=== PATIENT | female | born 1985 | race Caucasian/White ===

== ENCOUNTER 2016-10-20 20:27 | Inpatient (IN) ==
[2016-10-20] MEDS ORDERED: HYDROmorphone 2 MG/1 ML VIAL IV STA (21:53)
[2016-10-20] MEDS ORDERED: CLINDAMYCIN INJ 600 MG in PREMIX 1 EACH IV STA (21:53)
[2016-10-20] MEDS ORDERED: ONDANSETRON 4 MG/2 ML VIAL IV STA (21:53)
--- NOTE | 2016-10-20 21:53 | Emergency Department Note ---
IDom Sierra, am scribing for, and in the presence of, Jose Laboy MD 21:47. Narda Stoner Charles R, MD, personally performed the services described in this documentation, ascribed by Alexandrea Fernandes in my presence, and it is both accurate and complete . Arrival - Arrival Chief Complaint: Abscess Stated Complaint: Hematomaor abcess on buttocks, fever ED Nursing Triage Note: C/O Knot to buttock around anus- noticed today. Pt reports that she has also had fever of 100.9 at home. Pt reports pain with palpation. Denies drainage from area. Mode of Arrival: Ambulatory Limitations: No Limitations Source: Patient Time Seen by Provider: 10/20/16 21:29 - History of Present Illness HPI Narrative: Pt is a 30 y/o female that came to the ED with c/o knot to the left buttock around anus that she noticed today. Pt has associated sxs of fever but denies rectal pain. Pt states the only thing she could think of is a fall 3 months ago. Pt denies a Hx of hemorrhoids or medical problems. Pt denies possibility of due to being on control. No other complaints/pain in ED. Onset (ago): hour(s) Consistency: constant Severity: mild Severity scale (1-10): 2 Quality: other Date of Last Menstrual Period: 2 weeks ago Allergies/Adverse Reactions: Allergies Allergy/AdvReac Type Severity Reaction Status Date / Time Cefaclor [From Ceclor] Allergy Intermediate HIVES Verified 05/21/15 05:58 cefixime [From Suprax] Allergy Intermediate HIVES Verified 05/21/15 05:58 Cefprozil [From Cefzil] Allergy Intermediate HIVES Verified 05/21/15 05:58 Telithromycin [From Ketek] AdvReac Intermediate Blurry Verified 05/21/15 05:46 Vision Home Medications: Home Medications Medication Instructions Recorded Confirmed Type Montelukast Tab [Singulair Tab] 1 tablet PO DAILY 05/21/15 10/20/16 History Phentermine HCl [Adipex-P] 37.5 mg PO DAILY 10/20/16 10/20/16 History Review of System - Review of System 12 point system: reviewed and no additional remarkable complaints except as stated - Review of System Constitutional: Present: fever Cardiovascular: Absent: chest pain Gastrointestinal: Absent: abdominal pain Musculoskeletal: Absent: arm pain, back pain, leg pain, neck pain Skin: Present: other (knot on the left buttock near the anus) Neurological: Absent: headache Psychiatric: Absent: anxiety Medical,Surgical,& Family Hx - Medical History Cardio: No history of: Aneurysm, Cardiac Dysrhythmia, Cerebrovascular Disease, Congenital Heart Disease, CHF, CAD, Hypertension, [place], Pacemaker, PVD, Valvular Heart Disease, Cardiovascular Problems Psychological: No history of: Anxiety Disorders, ADHD, Behavior Problems, Bipolar Disorder, Depression, Previous Suicide Attempt, Psychiatric/Substance Abuse Tx, Schizophrenia, Violent Behavior, Psychiatric Problems Neurology: No history of: Brain Aneurysm, Cerebral Hemorrhage, Cerebrovascular Accident , Cerebral Palsy, Dementia, Migraine, Multiple Sclerosis, Parkinson's Disease, Peripheral Neuropathy, Seizures, TIA, Vertigo, Neurologocal Cancer HEENT: No history of: HEENT Problems Endocrine: No history of: Dyslipidemia, Endocrine Problems Respiratory: No history of: Respiratory Problems Musculoskeletal: No history of: Amputation, Musculoskeletal Problems Hematology: History of: Blood Disorders (Thalasemia minor) No history of: Anemia, Blood Transfusion Reaction, Bleeding Problems, Clotting Problems, Sickle Cell Disease, Hematologic Cancer Reproductive: History of: Complication (miscarriage 10) No history of: Ectopic Other: No history of: Anesthesia Reactions (Mother had reaction in surgery elevated temp), Cancer - Surgical History Cardiac Surgeries: Patient Denies: Femoral-Popliteal Bypass Graft, Cardiac Catheterization, Cardiac Surgery, Carotid Endarterectomy, Internal Defibrillator, Vascular Access Devices Thoracic Surgeries: Patient denies;: Organ Transplant, Lobectomy Neurologic Surgeries: Patient denies: Brain Aneurysm, Cerebral Hemorrhage, Neurologic Surgery HEENT Surgeries: Surgical HX of: Tonsilectomy & Adenoidectomy Patient denies: Carotid Endarterectomy, Eye Surgery, Thyroid Surgery Abdominal Surgeries: Patient denies: Abdominal Surgery, Appendectomy, Cholecystectomy, Colonoscopy , Gastric Bypass Surgery, EGD, Hernia Repair, Splenectomy Reproductive Surgeries: Surgical HX of;: Breast Surgery (Augment 2004), Dilation and Curettage (2013) Patient denies;: Section, Genitourinary Surgery, Gynecologic Surgery , Hysterectomy, Tubal Ligation - Family History Family History: Reports;: Family Anesthesia Reaction (mother), Family Cancer ( PGM and PGF), Family Diabetes (mother), Family Heart Disease (LA PGM), Family Hypertension (PGM and mother), Family Stroke Denies;: Family Psychiatric Problems - Social History Smoking Status: Never smoker Frequency of Alcohol Use: None Type of Drug Use: None Exam Vital Signs: Vital Signs Temperature 99 F 10/20/16 21:13 Pulse Rate 104 H 10/20/16 21:13 Respiratory Rate 18 10/20/16 21:13 Blood Pressure 155/83 10/20/16 21:13 O2 Sat by Pulse Oximetry 98 10/20/16 20:54 - General General appearance: alert, in no apparent distress - Head Head exam: Present: atraumatic, normocephalic - Eye Eye exam: Present: PERRL, EOMI - ENT ENT exam: Present: mucous membranes moist. Absent: mucous membranes dry - Neck Neck exam: Present: full ROM. Absent: tenderness - Chest Chest inspection: Present: symmetric chest wall rise. Absent: tenderness - Respiratory Respiratory exam: Present: normal lung sounds bilaterally. Absent: respiratory distress - Cardiovascular Cardiovascular exam: Present: normal rhythm, tachycardia, normal heart sounds - Abdominal Exam Abdominal exam: Present: soft. Absent: tenderness - Rectal Exam Rectal exam: Present: other (left perirectal abscess about 2 cm that is tender and deep but no area of redness or drainage) - Extremities Exam Extremities exam: Present: full ROM. Absent: tenderness - Back Exam Back exam: Present: full ROM. Absent: tenderness - Neurological Exam Neurological exam: Present: alert, oriented X3, CN II-XII intact. Absent: motor sensory deficit - Psychiatric Psychiatric exam: Present: normal affect, normal mood - Skin Skin exam: Present: warm, dry Course - Consultations Consultation #1: Dr. Patten will admit patient Time: 23:13 Results - Labs CBC & BMP: 10/20/16 22:11 10/20/16 22:11 Lab Results: I have reviewed the patients labs Labs: Laboratory Tests 10/20/16 22:11 WBC 13.5 H RBC 6.70 H MCV 60.7 L MCH 19 L MCHC 30.7 L RDW 17.7 H Lymph % (Auto) 20.8 L Neut # (Auto) 9.9 H Laboratory Tests 10/20/16 10/20/16 22:11 22:11 WBC 13.5 H RBC 6.70 H MCV 60.7 L MCH 19 L MCHC 30.7 L RDW 17.7 H Lymph % (Auto) 20.8 L Neut # (Auto) 9.9 H Urine Color Yellow Urine Appearance Clear Urine pH 8.0 Ur Specific Allen 1.010 Urine Protein Negative Urine Glucose (UA) Negative Urine Ketones Negative Urine Blood Negative Urine Nitrate Negative Urine Bilirubin Negative Urine Urobilinogen < 2.0 H Urine Leukocytes Negative Urine WBC 1 Ur Squamous Epith Cells Occasional Urine Bacteria Occasional Disposition Clinical Impression: Abscess of skin or subcutaneous tissue, Perirectal abscess Case discussed with: patient, patient's family Disposition: Still a Patient Condition: Stable Time of Disposition: 23:14
[2016-10-20] MEDS ORDERED: CLINDAMYCIN INJ 50 ML IV ONE (22:20)
[2016-10-20] MEDS ORDERED: ONDANSETRON 4 MG/2 ML VIAL ONE (22:20)
[2016-10-20] MEDS ORDERED: HYDROmorphone 2 MG/1 ML VIAL ONE (22:20)
[2016-10-20 22:24] LABS: Basophils # 0.1 10*3/uL (0.0-0.2); Basophils % 0.4 % (0.0-0.8); Eosinophils % 0.3 % (0.00-10.9); Hematocrit 40.7 VOL% (35.7-47.0); Hemoglobin 12.5 GM/DL (12.0-16.0); Immature Granulocytes % 0.3 %; Immature Granulocytes Absolute 0.04 #; Lymphocytes # 2.8 10*3/uL (1.4-4.0); Lymphocytes % 20.8 % (21.3-54.2); Mean Corpuscular HGB Conc 30.7 GM/DL (32-36); Mean Corpuscular Hemoglobin 19 PG (27-34); Mean Corpuscular Volume 60.7 FL (87-102); Mean Platelet Volume 10.5 FL (9.6-12.0); Monocytes # 0.6 10*3/uL (0.11-0.8); Monocytes % 4.6 % (1.7-12.7); Neutrophils # 9.9 10*3/uL (1.4-7.4); Neutrophils % 73.6 % (38.7-73.9); Platelet Count 331 T/CUMM (130-400); Red Cell Distribution Width 17.7 % (9.3-17.3); White Blood Count 13.5 T/CUMM (4-12)
[2016-10-20 22:54] LABS: Apearance,Urine CLEAR (Clear); Bacteria,Urine Occasional /HPF (Few); Bilirubin,Urine Negative (Negative); Blood, Urine Negative (Negative); Glucose,Urine (UA) Negative (Negative); Ketones,Urine Negative (Negative); Nitrite,Urine Negative (Negative); Protein,Urine Negative; Squamous Epithelial Cell,Urine Occasional /HPF (0-10); Urine Color Yellow (Yellow); Urine Urobilinogen < 2.0 EU/DL (0.2-1.0); WBC,Urine 1 /HPF (0-6)
[2016-10-20 23:05] LABS: Albumin 3.5 G/DL (3.4-5.0); Calcium 8.3 MG/DL (8.5-10.1); Osmolality,Calculated 275.5 MOS/KG (273-304); Potassium 4.1 MMOL/L (3.5-5.1); Total Protein 6.7 G/DL (6.4-8.3)
[2016-10-20] MEDS ORDERED: ACETAMINOPHEN 325 MG TABLET PO PRN (23:52)
[2016-10-20] MEDS ORDERED: HYDROmorphone 2 MG/1 ML VIAL IV PRN (23:52)
[2016-10-20] MEDS ORDERED: ONDANSETRON 4 MG/2 ML VIAL IV PRN (23:52)
[2016-10-21] MEDS: SODIUM CHLORIDE 0.9% 1,000 ML IV SCH ×2 (00:15→23:04)
[2016-10-21] MEDS: CLINDAMYCIN INJ 600 MG in PREMIX 1 EACH IV SCH ×4 (04:40→23:04)
[2016-10-21 08:49] LABS: Basophils % 0.4 % (0.0-0.8); Eosinophils % 0.5 % (0.00-10.9); Hematocrit 36.6 VOL% (35.7-47.0); Hemoglobin 11.1 GM/DL (12.0-16.0); Immature Granulocytes % 0.4 %; Immature Granulocytes Absolute 0.03 #; Lymphocytes % 25.4 % (21.3-54.2); Mean Corpuscular HGB Conc 30.3 GM/DL (32-36); Mean Corpuscular Hemoglobin 19 PG (27-34); Mean Corpuscular Volume 62.1 FL (87-102); Mean Platelet Volume 10.8 FL (9.6-12.0); Monocytes # 0.5 10*3/uL (0.11-0.8); Monocytes % 6.2 % (1.7-12.7); Neutrophils # 5.4 10*3/uL (1.4-7.4); Neutrophils % 67.1 % (38.7-73.9); Platelet Count 235 T/CUMM (130-400); Red Blood Count 5.89 MC/CUMM (3.8-5.5); Red Cell Distribution Width 16.1 % (9.3-17.3)
[2016-10-21 09:03] LABS: Calcium 8.1 MG/DL (8.5-10.1); Magnesium 2.2 MG/DL (1.8-2.4); Osmolality,Calculated 280.1 MOS/KG (273-304); Potassium 4.2 MMOL/L (3.5-5.1); Total Protein 5.8 G/DL (6.4-8.3)
[2016-10-21 09:25] LABS: Lymphocytes 26 % (20-55); Segmented Neutrophils 69 % (50-85); Total Cells Counted 100
[2016-10-21 09:26] LABS: Hypochromasia 1+; Ovalocytes Slight
[2016-10-21 09:27] LABS: Microcytosis 2+; Platelet Estimate Adequate
[2016-10-21] MEDS: MONTELUKAST 10 MG TABLET PO SCH (10:03)
[2016-10-21] MEDS: ENOXAPARIN 40 MG/0.4 ML SYRINGE SUBCUT SCH (10:05)
--- NOTE | 2016-10-21 10:41 | General Surg History&Physical ---
Assessment and Plan (1) Perirectal abscess Status: Acute Assessment and plan: This patient has a very tender lesion on her medial buttock and perirectal area. This is concerning for perirectal abscess. In order to minimize discomfort, we will go ahead with an exam in the operating room and drain the abscess if that is what we find. This was discussed with the patient in detail. I have discussed the risks, benefits, and alternatives of the operation with the patient, and the expected outcomes have been reviewed. We will proceed with the procedure. Current Visit: Yes History of Present Illness Chief complaint: Anal pain History of present illness: Ms. Phan is a 31 year old female with no significant past medical or surgical history who presents to the hospital with a 2 day history of worsening pain in the inner buttock on the right side. She was evaluated in the ER and thought to have a perirectal abscess and admitted to the hospital. She has had fevers as well. Home Medications Medication Instructions Recorded Confirmed Type Montelukast Tab [Singulair Tab] 1 tablet PO DAILY 05/21/15 10/20/16 History Phentermine HCl [Adipex-P] 37.5 mg PO DAILY 10/20/16 10/20/16 History Allergies Allergy/AdvReac Type Severity Reaction Status Date / Time Cefaclor [From Ceclor] Allergy Intermediate HIVES Verified 05/21/15 05:58 cefixime [From Suprax] Allergy Intermediate HIVES Verified 05/21/15 05:58 Cefprozil [From Cefzil] Allergy Intermediate HIVES Verified 05/21/15 05:58 Telithromycin [From Ketek] AdvReac Intermediate Blurry Verified 05/21/15 05:46 Vision Medical,Surgical,& Family Hx - Medical History Cardio: No history of: Aneurysm, Cardiac Dysrhythmia, Cerebrovascular Disease, Congenital Heart Disease, CHF, CAD, Hypertension, [place], Pacemaker, PVD, Valvular Heart Disease, Cardiovascular Problems Psychological: No history of: Anxiety Disorders, ADHD, Behavior Problems, Bipolar Disorder, Depression, Previous Suicide Attempt, Psychiatric/Substance Abuse Tx, Schizophrenia, Violent Behavior, Psychiatric Problems Neurology: No history of: Brain Aneurysm, Cerebral Hemorrhage, Cerebrovascular Accident , Cerebral Palsy, Dementia, Migraine, Multiple Sclerosis, Parkinson's Disease, Peripheral Neuropathy, Seizures, TIA, Vertigo, Neurologocal Cancer HEENT: No history of: HEENT Problems Endocrine: No history of: Dyslipidemia, Endocrine Problems Respiratory: No history of: Respiratory Problems Musculoskeletal: No history of: Amputation, Musculoskeletal Problems Hematology: History of: Blood Disorders (Thalasemia minor) No history of: Anemia, Blood Transfusion Reaction, Bleeding Problems, Clotting Problems, Sickle Cell Disease, Hematologic Cancer Reproductive: History of: Complication (miscarriage 10) No history of: Ectopic Other: No history of: Anesthesia Reactions (Mother had reaction in surgery elevated temp), Cancer - Surgical History Cardiac Surgeries: Patient Denies: Femoral-Popliteal Bypass Graft, Cardiac Catheterization, Cardiac Surgery, Carotid Endarterectomy, Internal Defibrillator, Vascular Access Devices Thoracic Surgeries: Patient denies;: Organ Transplant, Lobectomy Neurologic Surgeries: Patient denies: Brain Aneurysm, Cerebral Hemorrhage, Neurologic Surgery HEENT Surgeries: Surgical HX of: Tonsilectomy & Adenoidectomy Patient denies: Carotid Endarterectomy, Eye Surgery, Thyroid Surgery Abdominal Surgeries: Patient denies: Abdominal Surgery, Appendectomy, Cholecystectomy, Colonoscopy , Gastric Bypass Surgery, EGD, Hernia Repair, Splenectomy Reproductive Surgeries: Surgical HX of;: Breast Surgery (Augment 2004), Dilation and Curettage (2013) Patient denies;: Section, Genitourinary Surgery, Gynecologic Surgery , Hysterectomy, Tubal Ligation - Family History Family History: Reports;: Family Anesthesia Reaction (mother), Family Cancer ( PGM and PGF), Family Diabetes (mother), Family Heart Disease ([place] PGM), Family Hypertension (PGM and mother), Family Stroke Denies;: Family Psychiatric Problems - Social History Smoking Status: Never smoker Frequency of Alcohol Use: None Type of Drug Use: None Exam - Constitutional Vitals: Period Temp Pulse Resp BP Sys/Miramontes Pulse Ox Last 24 Hr 97.8 F-98.6 F 84-104 16-18 105-116/57-71 97-100 General appearance: no acute distress, morbidly obese - Head Head exam: Present: normal inspection, normocephalic - Eye Eye exam: Present: EOMI Pupils: Present: MCKENNA - ENT ENT exam: Present: normal exam Mouth exam: Present: normal external inspection, normal voice - Neck Neck exam: Present: normal inspection, trachea midline - Respiratory Respiratory exam: Present: clear to auscultation bilaterally. Absent: accessory muscle use, chest wall tenderness - Cardiovascular Cardiovascular exam: Present: RRR. Absent: systolic murmur, tachycardia - GI/Abdominal GI/Abdominal exam: Present: soft. Absent: tenderness, rebound - Anus/Rectum Anus/Rectum: other (There is a firm area to the right of the anus consistent with possible perirectal abscess. This is very tender. There is no appreciable erythema.) - Extremities Exam Extremities exam: Present: normal inspection, normal capillary refill - Back Exam Back exam: Present: normal inspection - Neurological Exam Neurological exam: Present: alert, oriented X3 Speech: Present: normal - Skin Skin exam: Present: normal color, warm - Constitutional Constitutional: Present: as per HPI - EENT Nose, mouth and throat: Present: as per HPI - Cardiovascular Cardiovascular: Present: as per HPI - Respiratory Respiratory: Present: as per HPI - Gastrointestinal Gastrointestinal: Present: as per HPI - Genitourinary Genitourinary: Present: as per HPI - Musculoskeletal Musculoskeletal: Present: as per HPI - Neurological Neurological: Present: as per HPI - Endocrine Endocrine: Present: as per HPI Hematologic/Lymphatic: Present: as per HPI Results - Labs CBC & BMP: 10/21/16 08:22 10/21/16 08:22
[2016-10-21] MEDS: PANTOPRAZOLE 40 MG VIAL IV SCH (11:10)
[2016-10-21] MEDS ORDERED: BUPIVACAINE MPF 0.25% /EPI 30 ML VIAL ONE (11:37)
[2016-10-21] MEDS ORDERED: PROPOFOL 200 MG/20 ML VIAL IV ONE (13:00)
[2016-10-21] MEDS ORDERED: LIDOCAINE 1% 5 ML VIAL ONE (13:00)
[2016-10-21] MEDS ORDERED: ONDANSETRON 4 MG/2 ML VIAL ONE ×2 (13:00→13:50)
--- NOTE | 2016-10-21 13:36 | Operative Note ---
Date of procedure: 10/21/16 Pre-op diagnosis: Perirectal abscess Post-op diagnosis: same Procedure: Preoperative diagnosis Perirectal abscess Postoperative diagnosis Ischio rectal perirectal abscess Procedures performed Rectal exam per anesthesia Incision and drainage of ischiorectal perirectal abscess externally Complications None apparent Findings A left-sided ischiorectal perirectal abscess was found on rectal exam was drained externally. Large amount of pus was drained and cultures were sent. The wound was irrigated and packed with iodoform packing gauze Anesthesia General LMA Blood loss None Indications Perirectal abscess Description of procedure The patient was taken to the operating room and transferred to the operating table in supine position. Pressure points were padded and SCDs placed to lower extremities. The patient was placed in lithotomy position after anesthesia was administered with general LMA anesthesia. The perineum was prepped with Betadine and draped sterilely. The patient was already receiving therapeutic antibiotics. Timeout was performed. Rectal exam under anesthesia revealed a moderate-sized issue rectal abscess in the perirectal space. This was drained externally because of the not close to the rectum and it was not fixed to the rectum. Incision was made over the skin and a cryo was used to enter the abscess cavity with a large amount of pus returned and cultures were sent. Loculations are broken up with digital manipulation of the wound was irrigated and packed with half-inch iodoform packing gauze and dressed with a sterile dressing. The patient was awakened from anesthesia and transferred to recovery. Postoperative plan Follow-up cultures Discharge planning Implants: iodoform packing gauze Anesthesia: GETA Surgeon / Physician: Chris Patten Estimated blood loss: minimal Specimens: other (cultures) Condition: stable Disposition: PACU Results - Labs CBC & BMP: 10/21/16 08:22 10/21/16 08:22 Discharge Plan - Discharge Medications No Action Montelukast Tab [Singulair Tab] 1 tablet PO DAILY Phentermine HCl [Adipex-P] 37.5 mg PO DAILY - Follow Up or Referral - Forms/Instructions
[2016-10-21] MEDS ORDERED: HYDROmorphone 2 MG/1 ML VIAL ONE (13:50)
[2016-10-21] MEDS ORDERED: ONDANSETRON 4 MG/2 ML VIAL IV PRN (13:50)
--- NOTE | 2016-10-21 13:54 | Anesthesia ---
Anesthesia Post OP - Post Ansesthetic Evaluation Patient seen in post op: Yes Resp: within normal limits CV: within normal limits Mental: within normal limits Temp: within normal limits [id number]: within normal limits Nausea and Vomiting: within normal limits Pain: within normal limits
[2016-10-21] MEDS: HYDROmorphone 2 MG/1 ML VIAL IV PRN ×4 (13:55→14:10)
[2016-10-21] MEDS ORDERED: fentaNYL 100 MCG/2 ML VIAL ONE (13:58)
[2016-10-21] MEDS ORDERED: MIDAZOLAM 2 MG/2 ML VIAL ONE (13:58)
[2016-10-21] MEDS ORDERED: SEVOFLURANE 1 UNIT/15 MINUTE INH ONE (13:58)
[2016-10-21] MEDS ORDERED: LACTATED RINGERS 1,000 ML IV SCH (14:00)
--- NOTE | 2016-10-21 16:42 | Event Note ---
General Surgery Progress Note Chief complaint This patient is a 31-year-old woman with a perirectal abscess treated with incision and drainage of ischiorectal perirectal abscess on 10/21/2016 Interval history No events since OR. The patient is resting comfortably and actually feels better since the procedure. Physical exam Afebrile, normal vital signs Resting comfortably Labs None new Imaging None Assessment and plan Continue antibiotics and follow-up cultures We will take the packing out tomorrow and teach the family how to do wound care and possible discharge home tomorrow
[2016-10-22] MEDS: CLINDAMYCIN INJ 600 MG in PREMIX 1 EACH IV SCH ×2 (04:17→11:44)
[2016-10-22] MEDS: ENOXAPARIN 40 MG/0.4 ML SYRINGE SUBCUT SCH (07:23)
[2016-10-22] MEDS: MONTELUKAST 10 MG TABLET PO SCH (09:21)
[2016-10-22] MEDS: PANTOPRAZOLE 40 MG VIAL IV SCH (09:22)
--- NOTE | 2016-10-22 10:54 | Event Note ---
General Surgery Progress Note Chief complaint This patient is a 31-year-old woman with a perirectal abscess treated with incision and drainage of ischiorectal perirectal abscess on 10/21/2016 Interval history No events overnight. The patient's packing was removed today and she was left to do a sitz bath with plans for repacking after her mother is available to be taught how to do wound care by the nurses. Physical exam Afebrile, normal vital signs The wound was unpacked and is clean with no further purulent drainage and no bleeding Labs Cultures are pending Imaging None Assessment and plan We will teach the patient's family how to pack this wound and she will be discharged home today with wound care instructions to clean her wound once daily in the shower after taking out the packing and have a family member replace the packing with half-inch iodoform gauze and cover with gauze and mesh underwear. She will go home with a prescription for Bactrim double strength twice daily and I will see her back in clinic in 1 week.
--- NOTE | 2016-10-22 11:50 | Discharge Summary ---
Hospital Course - Hospital Course Hospital Course: The patient is a 31-year-old female who presented to the emergency department with a ischiorectal perirectal abscess which required incision and drainage in the operating room. Postoperatively, her pain was controlled and she tolerated dressing change with oral pain medicines. Leukocytosis resolved. Vital signs remained stable. She tolerated oral intake without difficulty. She was discharged on oral antibiotics. We will follow-up on the cultures. She will follow-up in the clinic in 1 week. - Time spent with patient Time with patient DS: Less than 30 minutes Diagnosis - Discharge Diagnosis (1) Perirectal abscess Status: Acute (2) Ischiorectal abscess Status: Acute Specialty Discharge - Follow Up or Referrals Follow up with: Chris Patten MD [Physician] - 10/29/16 2:00 pm (please bring your medicines, insurance cards and photo id to your appointment. thank you.) Discharge Plan - Discharge Data Condition at Discharge: Stable Discharge Diet: advance to your usual diet, high fiber diet Activity: resume usual activities as tolerated, other (Avoid perspiration. ) Hygiene: may shower, keep area(s) dry Driving: other (No driving while taking narcotics) Contact your physician if you experience:: fever over 101, Difficulty voiding, Redness or swelling, Nausea/Vomiting, Shortness of breath, Bleeding, pain uncontrolled by pain medications (increased drainage or erythema about wound) Wound / Dressing Care Instructions: Daily: remove packing and shower, cleansing perirectal area. Insert 1/2 iodoform packing gauze, cover with gauze and cotton undergarment - Discharge Medications New Docusate Sodium [Colace] 100 mg PO DAILY #14 capsule HYDROcodone/ACETAMIN 7.5-325 [[place] 7.5-325] 1 tablet PO Q4H PRN #30 tablet PRN Reason: Pain Moderate To Severe (4-10) Continue Montelukast Tab [Singulair Tab] 1 tablet PO DAILY Phentermine HCl [Adipex-P] 37.5 mg PO DAILY - Follow Up or Referral Follow Up: Chris Patten MD [Physician] - 10/29/16 2:00 pm (please bring your medicines, insurance cards and photo id to your appointment. thank you.) - Forms/Instructions Instructions: Abscess (GEN), Incision and Drainage (DC) Additional Discharge Instructions: Bactrim DS take 1 tab BID x 7 days. Exam - Constitutional Vitals: Period Temp Pulse Resp BP Sys/Miramontes Pulse Ox Last 24 Hr 97.7 F-99.9 F 57-88 16-20 95-131/48-65 96-100 General appearance: no acute distress, morbidly obese - Respiratory Respiratory exam: Present: clear to auscultation bilaterally - Cardiovascular Cardiovascular exam: Present: regular rate and rhythm - GI/Abdominal GI/Abdominal exam: Present: normal bowel sounds, soft. Absent: distended, tenderness - Extremities Exam Extremities exam: Absent: calf tenderness (See Dr. Patten note day of discharge) , edema - Neurological Exam Neurological exam: Present: alert, oriented X3 - Psychiatric Psychiatric exam: Present: normal affect, normal mood Discharge Results Procedures and tests throughout hospitalization: Pending Orders 10/21/16 Abscess Culture Routine Anaerobic Culture Routine Above cultures pending Procedure: I&D ischiorectal perirectal abscess Labs on day of discharge: Preliminary micro results at discharge 10/21/16 Unknown Abscess Culture - Preliminary Anus Gram Negative Rods DS: Provider Date of admission: 10/20/16 23:14 Primary care physician: . No PCP Attending physician on admission: Chris Patten MD Discharging clinician: Jagruti Farley PA-C
[2016-10-22 20:24] VITALS: BP 129/63
== END 2016-10-22 13:47 | disposition home or self-care (01) | DRG 348 ==
LOC: N.ED 20:27 → N.EDINP 23:14 → N.3E 23:49
PROVIDERS: ADMIT Surgery; ATTEND Surgery

== ENCOUNTER 2016-12-17 18:51 | Inpatient (IN) ==
--- NOTE | 2016-12-17 20:22 | Emergency Department Note ---
IGabriela Brittany, am scribing for, and in the presence of, Arpit Zhang MD 19: 35. Leatha Stoner Robert, MD, personally performed the services described in this documentation, ascribed by Mylene Ochoa in my presence, and it is both accurate and complete . Arrival - Arrival Chief Complaint: Abscess Stated Complaint: told to come to Er by Dr. Keith who was ruby on rails engineer ED Nursing Triage Note: Patient to triage complaining of tenderness around surgical area with green drainage. Patient state she has also been running a low grade fever it. Patient had surgery on October 21 and . Mode of Arrival: Ambulatory Limitations: No Limitations Source: Patient Time Seen by Provider: 12/17/16 19:17 - History of Present Illness HPI Narrative: This is a 31 y/o white female,who presents to the ED with c/o perirectaltenderness which started earlier today. She states she has had surgery for a perirectal abscess on October [address] Patten. She states the site was then packed but she later developed Staph infection. She then had surgery to the same area on the 30 of October. She reports at this time a drainage tube was placed. She reports a low grade fever, but denies any vomiting, nausea, abdomen pain, diarrhea, vision changes, or dysuria. She notes a greenish discharge from the site. She states she called Dr. Patten's office and spoke with Dr. Keith, whom was ruby on rails engineer. She states she was told to come in to the ER. Pt has no other complaints/pain in the ED at this time. Pt has a PMHx of seizures, blood disorders and complications. Pt has had a breast surgery, D&C, tonsilectomy. Pt has a family medical Hx of stroke, HTN, heart disease, diabetes, cancer, and anesthesia reactions. Pt denies the use of tobacco products and street drugs, but notes rarely using alcohol. Onset (ago): hour(s) (Noticed today) Consistency: constant Severity: moderate Quality: sharp Allergies/Adverse Reactions: Allergies Allergy/AdvReac Type Severity Reaction Status Date / Time Cefaclor [From Ceclor] Allergy Intermediate HIVES Verified 12/17/16 19:03 cefixime [From Suprax] Allergy Intermediate HIVES Verified 12/17/16 19:03 Cefprozil [From Cefzil] Allergy Intermediate HIVES Verified 12/17/16 19:03 Telithromycin [From Ketek] AdvReac Intermediate Blurry Verified 12/17/16 19:03 Vision Home Medications: Home Medications Medication Instructions Recorded Confirmed Type Montelukast Tab [Singulair Tab] 1 tablet PO QPM 05/21/15 12/17/16 History Norethindrone [Norethindrone] 0.35 mg PO QPM 12/17/16 12/17/16 History Review of System - Review of System 12 point system: reviewed and no additional remarkable complaints except as stated - Review of System Constitutional: Present: fever (Low grade fever) Eyes: Absent: vision change Gastrointestinal: Absent: abdominal pain, nausea, vomiting, diarrhea Genitourinary female: Absent: dysuria Additional ROS comments: Surgical Site tender with a greenish drainage noted Medical,Surgical,& Family Hx - Medical History Cardio: No history of: Aneurysm, Cardiac Dysrhythmia, Cerebrovascular Disease, Congenital Heart Disease, CHF, CAD, Hypertension, [place], Pacemaker, PVD, Valvular Heart Disease, Cardiovascular Problems Psychological: No history of: Anxiety Disorders, ADHD, Behavior Problems, Bipolar Disorder, Depression, Previous Suicide Attempt, Psychiatric/Substance Abuse Tx, Schizophrenia, Violent Behavior, Psychiatric Problems Neurology: History of: Seizures No history of: Brain Aneurysm, Cerebral Hemorrhage, Cerebrovascular Accident , Cerebral Palsy, Dementia, Migraine, Multiple Sclerosis, Parkinson's Disease, Peripheral Neuropathy, TIA, Vertigo, Neurologocal Cancer HEENT: No history of: HEENT Problems Endocrine: No history of: Dyslipidemia, Endocrine Problems Respiratory: No history of: Respiratory Problems Musculoskeletal: No history of: Amputation, Musculoskeletal Problems Hematology: History of: Blood Disorders (Thalasemia minor) No history of: Anemia, Blood Transfusion Reaction, Bleeding Problems, Clotting Problems, Sickle Cell Disease, Hematologic Cancer Reproductive: History of: Complication (miscarriage 10) No history of: Ectopic Other: No history of: Cancer Comment Only: Anesthesia Reactions (Mother had reaction in surgery elevated temp) - Surgical History Cardiac Surgeries: Patient Denies: Femoral-Popliteal Bypass Graft, Cardiac Catheterization, Cardiac Surgery, Carotid Endarterectomy, Internal Defibrillator, Vascular Access Devices Thoracic Surgeries: Patient denies;: Organ Transplant, Lobectomy Neurologic Surgeries: Patient denies: Brain Aneurysm, Cerebral Hemorrhage, Neurologic Surgery HEENT Surgeries: Surgical HX of: Tonsilectomy & Adenoidectomy Patient denies: Carotid Endarterectomy, Eye Surgery, Thyroid Surgery Abdominal Surgeries: Patient denies: Abdominal Surgery, Appendectomy, Cholecystectomy, Colonoscopy , Gastric Bypass Surgery, EGD, Hernia Repair, Splenectomy Reproductive Surgeries: Surgical HX of;: Breast Surgery (Augment 2004), Dilation and Curettage (2013) Patient denies;: Section, Genitourinary Surgery, Gynecologic Surgery , Hysterectomy, Tubal Ligation - Family History Family History: Reports;: Family Anesthesia Reaction (mother), Family Cancer ( PGM and PGF), Family Diabetes (mother), Family Heart Disease ([place] PGM), Family Hypertension (PGM and mother), Family Stroke Denies;: Family Psychiatric Problems - Social History Smoking Status: Never smoker Frequency of Alcohol Use: Rarely Type of Drug Use: None Marital Status: Lives With:: Children Functional capacity: independent ambulation Exam Physical Examination: GENERAL: Well developed, well nourished. No acute distress. HEENT: PERRL, EOMI. No scleral icterus or conjunctival injection. Pharynx showed no erythema or exudate. mucous membranes moist. NECK: Supple. No lymph adenopathy. full ROM HEART: Regular rate and rhythm without murmurs, Rubs, or gallops. CHEST: No tenderness. LUNGS: clear to auscultation. No rales, rhonchi, wheezes ABDOMEN: Soft. Nontender. Bowel sounds normoactive. There were no masses or organomegaly. SKIN: Healed surgical scar over left perirectal region small punctum. Able to express pus. Mildly tender. NEURO: Alert. Motor exam showed no weakness. Sensory exam was intact to fine touch EXT: No edema noted. Full range of motion. normal capillary refill Vital Signs: Vital Signs Temperature 98.6 F 12/17/16 19:14 Pulse Rate 84 12/17/16 19:14 Respiratory Rate 18 12/17/16 19:14 Blood Pressure 123/74 12/17/16 19:14 O2 Sat by Pulse Oximetry 99 12/17/16 18:58 Course Course Narrative: Recurrence of perirectal abscess, discussed case with Dr. Ziegler (general surgery on-call). This suggests admitting under Dr. Patten as he will likely need to perform procedure in the morning. 7:30 PM Disposition Clinical Impression: Perirectal abscess Disposition: Still a Patient Time of Disposition: 20:09
[2016-12-17] MEDS ORDERED: ACETAMINOPHEN 325 MG TABLET PO PRN (21:16)
[2016-12-17] MEDS ORDERED: ONDANSETRON 4 MG/2 ML VIAL IV PRN (21:16)
[2016-12-17] MEDS: CLINDAMYCIN INJ 600 MG in PREMIX 1 EACH IV SCH (21:58)
[2016-12-18] MEDS: CLINDAMYCIN INJ 600 MG in PREMIX 1 EACH IV SCH (05:25)
[2016-12-18 07:10] LABS: Basophils % 0.4 % (0.0-0.8); Eosinophils # 0.1 10*3/uL (0.0-0.87); Hematocrit 40.6 VOL% (35.7-47.0); Hemoglobin 12.4 GM/DL (12.0-16.0); Immature Granulocytes % 0.6 %; Immature Granulocytes Absolute 0.06 #; Mean Corpuscular HGB Conc 30.5 GM/DL (32-36); Mean Corpuscular Hemoglobin 19 PG (27-34); Mean Corpuscular Volume 61.7 FL (87-102); Monocytes # 0.6 10*3/uL (0.11-0.8); Monocytes % 5.6 % (1.7-12.7); Neutrophils # 6.8 10*3/uL (1.4-7.4); Neutrophils % 64.4 % (38.7-73.9); Platelet Count 308 T/CUMM (130-400); Red Blood Count 6.58 MC/CUMM (3.8-5.5); Red Cell Distribution Width 18.6 % (9.3-17.3); White Blood Count 10.5 T/CUMM (4-12)
--- NOTE | 2016-12-18 07:28 | General Surg History&Physical ---
Assessment and Plan (1) Buttock wound Status: Acute Assessment and plan: The patient has a small sinus tract and part of her incision. There is no erythema or active drainage. There is no fluctuance to suggest recurrent abscess. However, her original perirectal abscess was very deep and I have recommended a CT scan of the pelvis with IV contrast to evaluate this. It is also possible that she has developed a fistula in ano but I do not think this was going on based on her history and exam. If the CT scan is negative she will be discharged home for outpatient follow-up and if it shows an abscess we will plan for drainage in the operating room. Current Visit: Yes History of Present Illness Chief complaint: left buttock pain History of present illness: Ms. Phan is a 31 year old female who is readmitted with pain in the left buttock area with low grade temp at home. She was readmitted for evaluation. Home Medications Medication Instructions Recorded Confirmed Type Montelukast Tab [Singulair Tab] 1 tablet PO QPM 05/21/15 12/17/16 History Norethindrone [Norethindrone] 0.35 mg PO QPM 12/17/16 12/17/16 History Allergies Allergy/AdvReac Type Severity Reaction Status Date / Time Cefaclor [From Ceclor] Allergy Intermediate HIVES Verified 12/17/16 19:03 cefixime [From Suprax] Allergy Intermediate HIVES Verified 12/17/16 19:03 Cefprozil [From Cefzil] Allergy Intermediate HIVES Verified 12/17/16 19:03 Telithromycin [From Ketek] AdvReac Intermediate Blurry Verified 12/17/16 19:03 Vision Medical,Surgical,& Family Hx - Medical History Cardio: No history of: Aneurysm, Cardiac Dysrhythmia, Cerebrovascular Disease, Congenital Heart Disease, CHF, CAD, Hypertension, [place], Pacemaker, PVD, Valvular Heart Disease, Cardiovascular Problems Psychological: No history of: Anxiety Disorders, ADHD, Behavior Problems, Bipolar Disorder, Depression, Previous Suicide Attempt, Psychiatric/Substance Abuse Tx, Schizophrenia, Violent Behavior, Psychiatric Problems Neurology: No history of: Brain Aneurysm, Cerebral Hemorrhage, Cerebrovascular Accident , Cerebral Palsy, Dementia, Migraine, Multiple Sclerosis, Parkinson's Disease, Peripheral Neuropathy, Seizures, TIA, Vertigo, Neurologocal Cancer HEENT: No history of: HEENT Problems Endocrine: No history of: Dyslipidemia, Endocrine Problems Respiratory: No history of: Respiratory Problems Musculoskeletal: No history of: Amputation, Musculoskeletal Problems Hematology: History of: Blood Disorders (Thalasemia minor) No history of: Anemia, Blood Transfusion Reaction, Bleeding Problems, Clotting Problems, Sickle Cell Disease, Hematologic Cancer Reproductive: History of: Complication (miscarriage 10) No history of: Ectopic Comment Only: Reproductive Problems (Currently taking control) Other: No history of: Cancer Comment Only: Anesthesia Reactions (Mother had reaction in surgery elevated temp) - Surgical History Cardiac Surgeries: Patient Denies: Femoral-Popliteal Bypass Graft, Cardiac Catheterization, Cardiac Surgery, Carotid Endarterectomy, Internal Defibrillator, Vascular Access Devices Thoracic Surgeries: Patient denies;: Organ Transplant, Lobectomy Neurologic Surgeries: Patient denies: Brain Aneurysm, Cerebral Hemorrhage, Neurologic Surgery HEENT Surgeries: Surgical HX of: Tonsilectomy & Adenoidectomy Patient denies: Carotid Endarterectomy, Eye Surgery, Thyroid Surgery Abdominal Surgeries: Patient denies: Abdominal Surgery, Appendectomy, Cholecystectomy, Colonoscopy , Gastric Bypass Surgery, EGD, Hernia Repair, Splenectomy Reproductive Surgeries: Surgical HX of;: Breast Surgery (2004), Section (Jun 2015), Dilation and Curettage (2013) Patient denies;: Genitourinary Surgery, Gynecologic Surgery, Hysterectomy, Tubal Ligation - Family History Family History: Reports;: Family Anesthesia Reaction (mother), Family Cancer ( PGM and PGF), Family Diabetes (mother), Family Heart Disease ([place] PGM), Family Hypertension (PGM and mother), Family Stroke Denies;: Family Psychiatric Problems - Social History Smoking Status: Never smoker Frequency of Alcohol Use: Rarely Type of Drug Use: None Exam - Constitutional Vitals: Period Temp Pulse Resp BP Sys/Miramontes Pulse Ox Last 24 Hr 97.2 F-98.6 F 69-99 16-20 101-134/50-76 95-99 General appearance: no acute distress, morbidly obese - Head Head exam: Present: normal inspection, normocephalic - Eye Eye exam: Present: EOMI. Absent: scleral icterus Pupils: Present: MCKENNA - ENT ENT exam: Present: normal exam Mouth exam: Present: normal external inspection, normal voice - Neck Neck exam: Present: normal inspection, trachea midline - Respiratory Respiratory exam: Present: clear to auscultation bilaterally. Absent: accessory muscle use, chest wall tenderness - Cardiovascular Cardiovascular exam: Present: RRR. Absent: systolic murmur, tachycardia - GI/Abdominal GI/Abdominal exam: Present: soft. Absent: tenderness, rebound - Anus/Rectum Anus/Rectum: other (There is a small opening on the left buttock wound with no active drainage, erythema, or fluctuance.) - Extremities Exam Extremities exam: Present: normal inspection - Back Exam Back exam: Present: normal inspection - Neurological Exam Neurological exam: Present: alert, oriented X3 Speech: Present: normal - Skin Skin exam: Present: normal color, warm - Constitutional Constitutional: Present: as per HPI - EENT Nose, mouth and throat: Present: as per HPI - Cardiovascular Cardiovascular: Present: as per HPI - Respiratory Respiratory: Present: as per HPI - Gastrointestinal Gastrointestinal: Present: as per HPI - Genitourinary Genitourinary: Present: as per HPI - Musculoskeletal Musculoskeletal: Present: as per HPI - Neurological Neurological: Present: as per HPI - Endocrine Endocrine: Present: as per HPI Hematologic/Lymphatic: Present: as per HPI Quality Measures - VTE Contraindication to Pharmacological VTE Prophylaxis: Clinical assessment deems Pt at low risk, no prophalaxis needed Results - Labs CBC & BMP: 12/18/16 06:41
[2016-12-18 07:39] LABS: Albumin 3.3 G/DL (3.4-5.0); Bilirubin,Total 0.8 MG/DL (0.2-1.0); Calcium 8.9 MG/DL (8.5-10.1); Osmolality,Calculated 280.3 MOS/KG (273-304); Potassium 4.5 MMOL/L (3.5-5.1); Total Protein 6.3 G/DL (6.4-8.3)
--- NOTE | 2016-12-18 08:32 | CT Report ---
CT pelvis w con Indication: Follow-up pelvic abscess Comparison: CT pelvis dated November 02, 2016 Technique: Multiple axial tomographic images of the pelvis were obtained after the administration of 100 cc Omnipaque 350 intravenous contrast. Findings: Visualized intrapelvic structures demonstrate no acute abnormality. There is scarlike opacity within the left ischiorectal fat in the region of prior surgical drain. No drainable fluid collection demonstrated. Osseous structures demonstrate no acute abnormality. IMPRESSION: As above. The CT exam was performed using one or more of the following dose reduction techniques: Automated exposure control, adjustment of the mA and/or kV according to patient size, or use of iterative reconstruction technique. PROCEDURE INTERPRETED AT [facility] DEPARTMENT OF RADIOLOGY Final Report Signed by: Dr Marcin Rodriguez
[2016-12-18] MEDS ORDERED: PANTOPRAZOLE 40 MG TABLET PO SCH (09:00)
--- NOTE | 2016-12-18 10:32 | Discharge Summary ---
Hospital Course - Hospital Course Hospital Course: Patient is a 31-year-old female who was experiencing significant rectal/ buttocks pain status post rectal abscess surgical I&D. CT scan was obtained to rule out fistula versus abscess which showed no with any evidence of either. She was discharged home on oral antibiotics with follow-up outpatient with Dr. Patten. She was discharged in good condition. Antibiotic selection compromised slightly as patient with reported cephalosporin allergy and experienced rash to ciprofloxacin recently. Based on tetracycline sensitivities, we will try doxycycline. Additionally, prior to discharge pt noted left breast lump present x 2-3 months. Intermittently tender, and she believes it fluctuates in size with menstruation. Last saw international trade compliance manager 07/2016. Requesting further evaluation. Will order breast US and f/u in clinic with results. Diagnosis - Discharge Diagnosis (1) Buttock wound Status: Acute Specialty Discharge - Follow Up or Referrals Follow up with: Chris Patten MD [Physician] - 12/25/16 10:30 am Discharge Plan - Discharge Data Disposition: Disch To Home/Self Care Condition at Discharge: Stable Discharge Diet: high fiber diet Activity: no lifting (> 10 lb. ) Hygiene: may shower, other (Sitz bath once daily and after bowel movements) Driving: other (No driving while taking narcotics) Contact your physician if you experience:: fever over 101, Redness or swelling ( or drainage from wound), Bleeding, pain uncontrolled by pain medications - Discharge Medications New Doxycycline Hyclate 100 mg PO BID #14 tablet Hydrocodone/Acetaminophen [Hydrocodon-Acetaminophen 5-325] 1 each PO Q4H PRN #20 tablet PRN Reason: Pain Moderate To Severe (4-10) Continue Montelukast Tab [Singulair Tab] 1 tablet PO QPM Norethindrone 0.35 mg PO QPM - Follow Up or Referral Follow Up: Chris Patten MD [Physician] - 12/25/16 10:30 am - Forms/Instructions Instructions: Sitz Bath (DC) Additional Discharge Instructions: Obtain breast ultrasound outpatient. Exam - Constitutional Vitals: Period Temp Pulse Resp BP Sys/Miramontes Pulse Ox Last 24 Hr 97.1 F-98.6 F 69-99 16-20 101-134/50-76 95-99 Discharge Results Labs on day of discharge: Labs from last 24 hours 12/18/16 12/18/16 12/18/16 06:41 06:41 06:26 WBC 10.5 RBC 6.58 H Hgb 12.4 Hct 40.6 MCV 61.7 L MCH 19 L MCHC 30.5 L RDW 18.6 H Plt Count 308 MPV 11.0 Neut % (Auto) 64.4 Lymph % (Auto) 28.0 Grainger % (Auto) 5.6 Eos % (Auto) 1.0 Baso % (Auto) 0.4 Neut # (Auto) 6.8 Lymph # (Auto) 3.0 Grainger # (Auto) 0.6 Eos # (Auto) 0.1 Baso # (Auto) 0.0 Immature Gran % 0.6 Nucleated RBC % 0.0 Immature Gran # 0.06 Nucleated RBCs # 0.00 Sodium 141 Potassium 4.5 Chloride 105 Carbon Dioxide 28 Anion Gap 12.5 BUN 12 Creatinine 0.70 GFR Calculation 140 BUN/Creatinine Ratio 17.00 Glucose 93 Calculated Osmolality 280.3 Calcium 8.9 Total Bilirubin 0.80 AST 7 ALT 14 Alkaline Phosphatase 109 Total Protein 6.3 L Albumin 3.3 L Globulin 3.0 Albumin/Globulin Ratio 1.1 Urine Test Negative DS: Provider Date of admission: 12/17/16 20:09 Primary care physician: . No PCP Attending physician on admission: Chris Patten MD Consults: 12/17/16 21:49 Consult to Pastoral Services [CONS] Routine Comment: Pastoral Screen: Request Envelope Adjuster Visit Pastoral Screen Source of Request: Patient Discharging clinician: Jagruti Farley PA-C
[2016-12-18 12:04] VITALS: BP 111/69
== END 2016-12-18 14:00 | disposition home or self-care (01) | DRG 948 ==
LOC: N.ED 18:51 → N.EDINP 20:09 → N.3E 21:16
PROVIDERS: ADMIT Surgery; ATTEND Surgery

== ENCOUNTER 2017-01-03 12:05 | Inpatient (IN) ==
[2017-01-03] MEDS ORDERED: KETOROLAC 15 MG/1 ML VIAL IV PRN (13:08)
[2017-01-03] MEDS ORDERED: PSEUDOEPHEDRINE PO PRN (13:08)
[2017-01-03] MEDS ORDERED: ONDANSETRON 4 MG/2 ML VIAL IV PRN (13:08)
[2017-01-03] MEDS ORDERED: FEXOFENADINE PO PRN (13:08)
[2017-01-03] MEDS ORDERED: PIPERACILLIN/TAZOBACTAM 3,375 MG in SODIUM CHLORIDE 0.9% 100 ML IV SCH (13:08)
[2017-01-03 13:43] LABS: Basophils % 0.2 % (0.0-0.8); Eosinophils % 0.2 % (0.00-10.9); Hematocrit 38.9 VOL% (35.7-47.0); Hemoglobin 11.8 GM/DL (12.0-16.0); Immature Granulocytes % 0.5 %; Immature Granulocytes Absolute 0.07 #; Lymphocytes # 1.1 10*3/uL (1.4-4.0); Lymphocytes % 7.5 % (21.3-54.2); Mean Corpuscular HGB Conc 30.3 GM/DL (32-36); Mean Corpuscular Hemoglobin 19 PG (27-34); Mean Corpuscular Volume 61.5 FL (87-102); Mean Platelet Volume 10.4 FL (9.6-12.0); Monocytes # 0.5 10*3/uL (0.11-0.8); Monocytes % 3.8 % (1.7-12.7); Neutrophils # 12.6 10*3/uL (1.4-7.4); Neutrophils % 87.8 % (38.7-73.9); Platelet Count 253 T/CUMM (130-400); Red Blood Count 6.33 MC/CUMM (3.8-5.5); Red Cell Distribution Width 17.9 % (9.3-17.3); White Blood Count 14.3 T/CUMM (4-12)
[2017-01-03] MEDS: ACETAMINOPHEN 325 MG TABLET PO PRN (14:10)
[2017-01-03 14:13] LABS: Calcium 8.2 MG/DL (8.5-10.1); Osmolality,Calculated 267.1 MOS/KG (273-304); Potassium 4.3 MMOL/L (3.5-5.1)
[2017-01-03] MEDS ORDERED: GENTAMICIN IV SCH (15:00)
--- NOTE | 2017-01-03 15:10 | General Surg History&Physical ---
Assessment and Plan (1) [id number] Status: Acute Assessment and plan: This patient has fever after seton placement of fistula in anal. There is no evidence of cora-anal or perineal sepsis. There is no crepitus on the wound. There is no erythema. There is no significant drainage. There is no significant tenderness here. The wound appears healthy overall drain is in appropriate position. The patient does not appear toxic. Her white blood cell count is elevated but her BMP is fairly normal. She will be treated with IV fluids and IV antibiotics. There is nothing that looks like it could be cultured from the wound per se so we will go ahead and just treat this empirically based on her prior cultures and also get a chest x-ray to evaluate for atelectasis given her recent general anesthetic and also a pelvic CT to ensure that we have adequate drainage of this area. I felt in the operating room yesterday that there was adequate drainage but we will ensure this with the pelvic CT. Current Visit: Yes History of Present Illness Chief complaint: Fever History of present illness: Ms. Phan is a 31 year old female who had a seton drainage placement for a fistula in anal on 01/02/2017 and was directly admitted today for high fevers at home and feeling poorly. She is currently resting in her room and feels a little bit better after some Tylenol but her temp is up to 102 she is tachycardic. Her wound has been draining minimal since the packing was removed today. Home Medications Medication Instructions Recorded Confirmed Type Montelukast Tab [Singulair Tab] 1 tablet PO QPM 05/21/15 01/02/17 History Fexofenadine/Pseudoeph 60-120 1 tablet PO DIRECTED PRN 01/01/17 01/02/17 History [Indu D 12 Hour] Norethindrone AC-Eth Estradiol 1 each PO DAILY 01/01/17 01/02/17 History [Microgestin 21 1-20 Tablet] Phentermine HCl [Adipex-P] 37.5 mg PO DAILY 01/01/17 01/02/17 History Hydrocodone/Acetaminophen [[place] 1 each PO Q6H PRN #20 tablet 01/02/17 Rx 7.5-325 Tablet] Allergies Allergy/AdvReac Type Severity Reaction Status Date / Time Cefaclor [From [facility]] Allergy Severe HIVES Verified 01/02/17 08:21 cefixime [From Suprax] Allergy Severe HIVES Verified 01/02/17 08:21 Cefprozil [From Cefzil] Allergy Severe HIVES Verified 01/02/17 08:21 Telithromycin [From Ketek] AdvReac Intermediate Blurry Verified 01/02/17 08:21 Vision Medical,Surgical,& Family Hx - Medical History Cardio: No history of: Aneurysm, Cardiac Dysrhythmia, Cerebrovascular Disease, Congenital Heart Disease, CHF, CAD, Hypertension, [place], Pacemaker, PVD, Valvular Heart Disease, Cardiovascular Problems Psychological: No history of: Anxiety Disorders, ADHD, Behavior Problems, Bipolar Disorder, Depression, Previous Suicide Attempt, Psychiatric/Substance Abuse Tx, Schizophrenia, Violent Behavior, Psychiatric Problems Neurology: No history of: Brain Aneurysm, Cerebral Hemorrhage, Cerebrovascular Accident , Cerebral Palsy, Dementia, Migraine, Multiple Sclerosis, Parkinson's Disease, Peripheral Neuropathy, Seizures, TIA, Vertigo, Neurologocal Cancer HEENT: No history of: HEENT Problems Endocrine: No history of: Dyslipidemia, Endocrine Problems Respiratory: History of: Respiratory Problems (COLD WITHIN THE LAST 2 WEEKS.) Musculoskeletal: No history of: Amputation, Musculoskeletal Problems Hematology: History of: Blood Disorders (Thalasemia minor) No history of: Anemia, Blood Transfusion Reaction, Bleeding Problems, Clotting Problems, Sickle Cell Disease, Hematologic Cancer Reproductive: History of: Complication (miscarriage 10) No history of: Ectopic Comment Only: Reproductive Problems (Currently taking control) Other: History of: Anesthesia Reactions (Mother had reaction in surgery elevated temp), Miscellaneous Medical Problems (I&D ASCESS 10/21/16 AND I&D WITH DRAIN TUBE PLACEMENT 10/30/2016.) No history of: Cancer - Surgical History Cardiac Surgeries: Patient Denies: Femoral-Popliteal Bypass Graft, Cardiac Catheterization, Cardiac Surgery, Carotid Endarterectomy, Internal Defibrillator, Vascular Access Devices Thoracic Surgeries: Patient denies;: Organ Transplant, Lobectomy Neurologic Surgeries: Patient denies: Brain Aneurysm, Cerebral Hemorrhage, Neurologic Surgery HEENT Surgeries: Surgical HX of: Tonsilectomy & Adenoidectomy Patient denies: Carotid Endarterectomy, Eye Surgery, Thyroid Surgery Abdominal Surgeries: Patient denies: Abdominal Surgery, Appendectomy, Cholecystectomy, Colonoscopy , Gastric Bypass Surgery, EGD, Hernia Repair, Splenectomy Reproductive Surgeries: Surgical HX of;: Breast Surgery (Augment 2004), Section (Jun 2015), Dilation and Curettage (2013), Gynecologic Surgery Patient denies;: Genitourinary Surgery, Hysterectomy, Tubal Ligation - Family History Family History: Reports;: Family Anesthesia Reaction (mother), Family Cancer ( PGM and PGF), Family Diabetes (mother), Family Heart Disease ([place] PGM), Family Hypertension (PGM and mother), Family Stroke Denies;: Family Psychiatric Problems - Social History Smoking Status: Former smoker Exam - Constitutional Vitals: Period Temp Pulse Resp BP Sys/Miramontes Pulse Ox Last 24 Hr 101.5 F-101.5 F 125 20 126/75 98 General appearance: no acute distress, morbidly obese - Head Head exam: Present: normal inspection, normocephalic - Eye Eye exam: Present: EOMI Pupils: Present: MCKENNA - ENT ENT exam: Present: normal exam Mouth exam: Present: normal external inspection, normal voice - Neck Neck exam: Present: normal inspection, trachea midline - Respiratory Respiratory exam: Present: clear to auscultation bilaterally. Absent: accessory muscle use, chest wall tenderness - Cardiovascular Cardiovascular exam: Present: tachycardia. Absent: irregular rhythm, systolic murmur - GI/Abdominal GI/Abdominal exam: Present: soft. Absent: tenderness, rebound - Extremities Exam Extremities exam: Present: normal inspection, normal capillary refill - Back Exam Back exam: Present: normal inspection - Neurological Exam Neurological exam: Present: alert, oriented X3 Speech: Present: normal - Skin Skin exam: Present: normal color, warm - Constitutional Constitutional: Present: as per HPI - EENT Nose, mouth and throat: Present: as per HPI - Cardiovascular Cardiovascular: Present: as per HPI - Respiratory Respiratory: Present: as per HPI - Gastrointestinal Gastrointestinal: Present: as per HPI - Genitourinary Genitourinary: Present: as per HPI - Musculoskeletal Musculoskeletal: Present: as per HPI - Neurological Neurological: Present: as per HPI - Endocrine Endocrine: Present: as per HPI Hematologic/Lymphatic: Present: as per HPI Results - Labs CBC & BMP: 01/03/17 13:23 01/03/17 13:23
[2017-01-03] MEDS: LACTATED RINGERS 1,000 ML IV SCH ×2 (15:36→22:00)
[2017-01-03] MEDS ORDERED: GENTAMICIN INJ 360 MG in SODIUM CHLORIDE 0.9% 100 ML IV SCH (16:00)
--- NOTE | 2017-01-03 16:02 | XRay Report ---
XR chest 2V Date: 01/03/2017 2:50 PM History: Fever Comparison: 01/03/2017 Technique: PA and lateral chest Findings: The heart is normal in size with minimal atelectasis at the lung bases. Calcified granulomata/nodes. No acute osseous findings. Impression: Minimal atelectasis at the lung bases. PROCEDURE INTERPRETED AT [facility] DEPARTMENT OF RADIOLOGY Final Report Signed by: Dr. Elizabeth Chairez
[2017-01-03] MEDS: LINEZOLID INJ 600 MG in PREMIX 1 EACH IV SCH (16:57)
--- NOTE | 2017-01-03 17:00 | CT Report ---
Referring physician: Chris Patten EXAM: CT pelvis without contrast DATE: 01/03/2017 COMPARISON: 12/18/2016 REASON: Fistula in ano, fever TECHNIQUE: Axial images of the pelvis were obtained after the injection 100 cc of Omnipaque 350.. Sagittal and coronal reformatted images were acquired. Total DLP was 1388.40 mGy*cm. FINDINGS: Persistent fecal material throughout the visualized colon with no evidence of appendicitis or diverticulitis. Larger 60 mm left ovarian cyst which measured 20 mm on the previous exam. Trace amount of free fluid in the pelvis. Insertion of a Seton drain within the apparent residual fistula in the left ischio rectal fat adjacent to the anus. There is progressive adjacent fluid and soft tissue density with subcutaneous emphysema which extends throughout the left floor of the pelvis. The air extends superiorly into the left abdominal wall/femoral location and into the medial left upper thigh. IMPRESSION: Seton drain in the fistulous tract adjacent to the anus. Progressive ill-defined fluid and soft tissue density with significant subcutaneous emphysema. Some of these findings may be related to the surgery but infectious process cannot be excluded and follow-up CT may be helpful for further evaluation. Larger 60 mm left ovarian cyst with a trace amount of pelvic ascites. Increased thecal material in the colon consistent with constipation. The CT exam was performed using one or more of the following dose reduction techniques: Automated exposure control and adjustment of the mA and/or kV according to patient size. PROCEDURE INTERPRETED AT [facility] DEPARTMENT OF RADIOLOGY Final Report Signed by: Dr. Elizabeth Chairez
[2017-01-03] MEDS ORDERED: SODIUM CHLORIDE 0.9% 1,000 ML IV ONE (19:02)
--- NOTE | 2017-01-03 19:09 | Event Note ---
I have again seen and examined the patient. Her fever curve is trending down but she has just received 1 of her 3 antibiotics. She feels uncomfortable with diffuse body aches due to her fever and is also having some swelling in her left labial area. Her chest x-ray shows minimal atelectasis in her pelvic CT shows some significant subcutaneous air that extends from the cavity where the fistula was into the left labia and into the subcutaneous tissues above the fascia controlled with the drain extending up on the left side of the abdominal wall. On exam she has no obvious crepitus here and there is no erythema or tenderness on her abdominal wall skin. She does have a little bit of tenderness over her labia and there is no erythema or skin changes here. This is a little bit more air than I would expect from the operation that I did but there was quite a bit of interrogation of her cavity with digital probing and manipulation and I certainly think this air could just be related to cavity being disrupted during the operation. I do not see any evidence that the patient needs to go to the operating room for any sort of necrotizing soft tissue infection at this time. We will treat her aggressively with antibiotics and IV fluids and I will plan to repeat her lab work in the morning and also get a lactic acid in the morning. If anything worsens overnight she could require operation for drainage of these areas but I think for now there is nothing that indicates a necrotizing soft tissue infection so we will just watch this closely and treat her as above. Blood cultures have been done. We will give a bolus of normal saline as well to try to treat her tachycardia, fever, and malaise.
[2017-01-03] MEDS: MONTELUKAST 10 MG TABLET PO SCH (19:10)
[2017-01-03] MEDS: IBUPROFEN 600 MG TABLET PO PRN (19:12)
[2017-01-03] MEDS ORDERED: METOCLOPRAMIDE 10 MG/2 ML VIAL IV STA (21:22)
[2017-01-03] MEDS ORDERED: LIDOCAINE 1% 5 ML VIAL ONE (21:58)
[2017-01-03] MEDS ORDERED: ROCURONIUM 100 MG/10 ML VIAL IV ONE (21:58)
[2017-01-03] MEDS ORDERED: SUCCINYLCHOLINE 200 MG/10 ML VIAL ONE (21:58)
[2017-01-03] MEDS ORDERED: PROPOFOL 200 MG/20 ML VIAL IV ONE (21:58)
[2017-01-03] MEDS ORDERED: ONDANSETRON 4 MG/2 ML VIAL ONE (21:58)
[2017-01-03] MEDS: CLINDAMYCIN INJ 900 MG in PREMIX 1 EACH IV SCH (22:00)
--- NOTE | 2017-01-03 22:41 | Operative Note ---
Date of procedure: 01/03/17 Pre-op diagnosis: Possible necrotizing soft tissue infection left perineum and left groin Post-op diagnosis: same Procedure: Exploration of left perineum and mons pubis and left groin fascia Indications for surgery: I was contacted by Dr. Patten who had discussed exploration of the patient's soft tissues and fascia and the family was reluctant to go to surgery. Patient has had fever and elevated white blood cell count and pain in her left labia majora and a CT scan shows gas in the soft tissues of the left perineum and left inguinal region. I examined the patient and she had no skin changes and no crepitus and only mild tenderness of her mons pubis however with the findings on CT scan I agree with Dr. landers recommendation for exploration in the operating room and possible debridement considering that the patient could have a necrotizing soft tissue infection. The family agreed at this point to proceed with surgery. Findings and technique: The patient was brought to the operating room and was actually less tachycardic than she was preoperatively. Her pulse was down to 100 from 125. Her blood pressure was normal. She tolerated induction of general anesthesia without difficulty and was placed in lithotomy position and her lower abdomen and perineum were prepped and draped in usual sterile fashion. Examination of the perineum revealed a fairly unremarkable surgical wound which was opened with a seton in place. Palpation of the perineum did not result in any purulent drainage or any dirty dishwater type drainage. There was no crepitus along the perineum. There was maybe a small amount of erythema just superior to the site of the fistula at the lower part of the left labia majora are just below it however this did not clearly represent cellulitis and may have represented post operative change. I made an incision at the lateral aspect of the labia majora and explored down to the fascia which appeared normal. There was no purulence and there was no gas that I could identify. I dissected into the subcutaneous tissues of the labia majora were once again I did not clearly identify any gas or any purulent fluid or any dirty dishwater type of fluid. I saw no evidence of necrosis. These tissues were cultured. This was irrigated and packed with iodoform gauze. A separate encounter incision was made at the medial groin where sharp dissection was carried through the normal-appearing subcutaneous tissue down to the fascia which appeared normal as well. I made a small incision in the fascia to see if there is any signs of infection deep to it and it was normal through this less than 1 cm fascial defect. This wound appeared completely clean and this was irrigated and loosely closed with skin clips. I am in agreement with close observation and antibiotics appropriate for treatment of a necrotizing soft tissue infection though this does not appear to be the case on surgical exploration. With her initial tachycardia and fever early postoperatively I think that we will still pursue aggressive antibiotics and close follow-up and monitoring. Anesthesia: GETA Surgeon / Physician: Liam Pollard III. Estimated blood loss: minimal Specimens: other (Cultures) Condition: stable Disposition: PACU Results - Labs CBC & BMP: 01/03/17 13:23 01/03/17 13:23 Discharge Plan - Discharge Medications No Action Montelukast Tab [Singulair Tab] 1 tablet PO QPM Norethindrone AC-Eth Estradiol [Microgestin 21 1-20 Tablet] 1 each PO DAILY Fexofenadine/Pseudoeph 60-120 [Indu D 12 Hour] 1 tablet PO DIRECTED PRN PRN Reason: Sinus Symptoms Phentermine HCl [Adipex-P] 37.5 mg PO DAILY Hydrocodone/Acetaminophen [[place] 7.5-325 Tablet] 1 each PO Q6H PRN #20 tablet PRN Reason: Pain - Follow Up or Referral - Forms/Instructions
--- NOTE | 2017-01-03 22:46 | Anesthesia Post-Op ---
Anesthesia Post OP - Post Ansesthetic Evaluation Patient seen in post op: Yes Resp: within normal limits CV: within normal limits Mental: within normal limits Temp: within normal limits Yyjl-Ga-Aislgorte: within normal limits Nausea and Vomiting: within normal limits Pain: within normal limits
[2017-01-03] MEDS ORDERED: SEVOFLURANE 1 UNIT/15 MINUTE INH ONE (22:49)
[2017-01-03] MEDS ORDERED: fentaNYL 100 MCG/2 ML VIAL ONE (22:49)
[2017-01-03] MEDS ORDERED: MIDAZOLAM 2 MG/2 ML VIAL ONE (22:49)
[2017-01-04] MEDS: MEROPENEM 1,000 MG in SODIUM CHLORIDE 0.9% 100 ML IV SCH ×3 (01:21→18:03)
[2017-01-04 02:25] LABS: Basophils % 0.2 % (0.0-0.8); Eosinophils % 0.1 % (0.00-10.9); Hematocrit 32.6 VOL% (35.7-47.0); Hemoglobin 9.9 GM/DL (12.0-16.0); Immature Granulocytes % 0.6 %; Immature Granulocytes Absolute 0.12 #; Lymphocytes # 1.9 10*3/uL (1.4-4.0); Lymphocytes % 10.1 % (21.3-54.2); Mean Corpuscular HGB Conc 30.4 GM/DL (32-36); Mean Corpuscular Hemoglobin 19 PG (27-34); Mean Platelet Volume 11.1 FL (9.6-12.0); Monocytes # 0.7 10*3/uL (0.11-0.8); Monocytes % 3.6 % (1.7-12.7); Neutrophils # 16.1 10*3/uL (1.4-7.4); Neutrophils % 85.4 % (38.7-73.9); Platelet Count 251 T/CUMM (130-400); Red Blood Count 5.34 MC/CUMM (3.8-5.5); White Blood Count 18.8 T/CUMM (4-12)
[2017-01-04 02:49] LABS: Calcium 7.4 MG/DL (8.5-10.1); Magnesium 1.8 MG/DL (1.8-2.4); Osmolality,Calculated 283.1 MOS/KG (273-304); Potassium 3.8 MMOL/L (3.5-5.1)
[2017-01-04] MEDS: LACTATED RINGERS 1,000 ML IV SCH ×3 (02:53→17:35)
[2017-01-04] MEDS: LINEZOLID INJ 600 MG in PREMIX 1 EACH IV SCH ×2 (02:53→16:46)
[2017-01-04 02:58] LABS: Lactic Acid 2.5 MMOL/L (0.4-2.0)
[2017-01-04] MEDS: CLINDAMYCIN INJ 900 MG in PREMIX 1 EACH IV SCH ×3 (05:38→21:37)
[2017-01-04] MEDS: ENOXAPARIN 40 MG/0.4 ML SYRINGE SUBCUT SCH (06:37)
[2017-01-04] MEDS ORDERED: SODIUM CHLORIDE 0.9% 1,000 ML IV ONE (08:14)
[2017-01-04] MEDS: PANTOPRAZOLE 40 MG TABLET PO SCH (08:54)
[2017-01-04] MEDS: NORETHINDRONE AC ETH ESTRADIOL PO SCH (08:54)
[2017-01-04] MEDS: Phentermine Hcl [Adipex-P] 37.5 MG PO SCH (08:55)
[2017-01-04] MEDS: HYDROmorphone 2 MG/1 ML VIAL IV PRN ×2 (09:31→13:55)
--- NOTE | 2017-01-04 09:31 | Event Note ---
General Surgery Progress Note Chief complaint This patient is a 31-year-old woman admitted with fever and hernial infection following seton placement for fistula and anal that was treated with exploration of groin and pubis area on 01/03/2017 revealing no evidence of necrotizing fasciitis Interval history The patient feels much better today. She did have some low blood pressures this morning but her fever and tachycardia has resolved. Her white blood cell count went up to 18,000 and her hemoglobin is down some. Her lactic acid this morning is 2.5 but she is not acidotic on her chemistry. Overall she says she feels much better. Physical exam The patient is afebrile with normal vital signs after we gave her a bolus this morning her blood pressure normalized She is in no distress and her wound will be examined once she gets pain medication Labs Reviewed, as above Imaging None new Assessment and plan We will continue aggressive antibiotic therapy and wound care. If anything surprising is seen on wound care changes today I will add an addendum to this note but otherwise we will continue packing the pubic wound and monitoring the remainder of her resuscitation and her lab work. Repeat labs tomorrow Begin DVT chemoprophylaxis
[2017-01-04] MEDS: IBUPROFEN 600 MG TABLET PO PRN (14:36)
[2017-01-04] MEDS: ACETAMINOPHEN 325 MG TABLET PO PRN (15:38)
[2017-01-04 16:41] LABS: Basophils % 0.2 % (0.0-0.8); Eosinophils # 0.1 10*3/uL (0.0-0.87); Eosinophils % 0.3 % (0.00-10.9); Immature Granulocytes % 0.5 %; Immature Granulocytes Absolute 0.08 #; Lymphocytes # 2.1 10*3/uL (1.4-4.0); Mean Corpuscular HGB Conc 30.6 GM/DL (32-36); Mean Corpuscular Hemoglobin 19 PG (27-34); Mean Corpuscular Volume 61.2 FL (87-102); Mean Platelet Volume 10.5 FL (9.6-12.0); Monocytes # 0.7 10*3/uL (0.11-0.8); Monocytes % 4.2 % (1.7-12.7); Neutrophils # 14.2 10*3/uL (1.4-7.4); Neutrophils % 82.8 % (38.7-73.9); Platelet Count 272 T/CUMM (130-400); Red Blood Count 5.88 MC/CUMM (3.8-5.5); Red Cell Distribution Width 17.5 % (9.3-17.3); White Blood Count 17.2 T/CUMM (4-12)
[2017-01-04 17:02] LABS: Lactic Acid 0.7 MMOL/L (0.4-2.0)
[2017-01-04 17:26] LABS: Magnesium 1.8 MG/DL (1.8-2.4); Osmolality,Calculated 269.8 MOS/KG (273-304); Potassium 4.2 MMOL/L (3.5-5.1)
[2017-01-04] MEDS: MONTELUKAST 10 MG TABLET PO SCH (18:45)
[2017-01-04] MEDS ORDERED: DOCUSATE SODIUM 100 MG CAPSULE PO SCH (21:00)
[2017-01-05] MEDS: MEROPENEM 1,000 MG in SODIUM CHLORIDE 0.9% 100 ML IV SCH ×2 (00:50→09:05)
[2017-01-05] MEDS: LINEZOLID INJ 600 MG in PREMIX 1 EACH IV SCH ×2 (01:50→14:14)
[2017-01-05] MEDS: LACTATED RINGERS 1,000 ML IV SCH ×3 (02:00→11:45)
[2017-01-05] MEDS: CLINDAMYCIN INJ 900 MG in PREMIX 1 EACH IV SCH ×2 (04:49→12:12)
[2017-01-05 05:09] LABS: Basophils % 0.2 % (0.0-0.8); Eosinophils # 0.1 10*3/uL (0.0-0.87); Hematocrit 32.3 VOL% (35.7-47.0); Hemoglobin 9.9 GM/DL (12.0-16.0); Immature Granulocytes % 0.7 %; Immature Granulocytes Absolute 0.08 #; Lymphocytes # 1.2 10*3/uL (1.4-4.0); Mean Corpuscular HGB Conc 30.7 GM/DL (32-36); Mean Corpuscular Hemoglobin 19 PG (27-34); Mean Corpuscular Volume 60.6 FL (87-102); Mean Platelet Volume 10.6 FL (9.6-12.0); Monocytes # 0.7 10*3/uL (0.11-0.8); Monocytes % 5.7 % (1.7-12.7); Neutrophils # 10.1 10*3/uL (1.4-7.4); Neutrophils % 82.4 % (38.7-73.9); Platelet Count 210 T/CUMM (130-400); Red Blood Count 5.33 MC/CUMM (3.8-5.5); Red Cell Distribution Width 16.7 % (9.3-17.3); White Blood Count 12.3 T/CUMM (4-12)
[2017-01-05 05:38] LABS: Lactic Acid 0.7 MMOL/L (0.4-2.0)
[2017-01-05 05:41] LABS: Calcium 7.8 MG/DL (8.5-10.1); Magnesium 2.1 MG/DL (1.8-2.4); Osmolality,Calculated 276.4 MOS/KG (273-304); Potassium 4.1 MMOL/L (3.5-5.1)
[2017-01-05] MEDS: ENOXAPARIN 40 MG/0.4 ML SYRINGE SUBCUT SCH (06:23)
[2017-01-05] MEDS: HYDROmorphone 2 MG/1 ML VIAL IV PRN ×3 (06:47→16:02)
--- NOTE | 2017-01-05 08:35 | Event Note ---
Patient looks much better. There was a single low-grade temperature yesterday as expected and no fever since. Her wounds are unremarkable in appearance. The groin wound is completely normal. The perineal wound is clean with no purulence and no necrotic tissue or signs of active infection or necrosis. Her white blood cell count has come down nicely since being started on IV antibiotics. She appears to be responding well to antibiotics and I see no signs of necrotizing soft tissue infection. I will leave her care up to Dr. Patten as he has been managing her before and she has responded well to treatment. The family is wanting her to be transferred directly to [facility]. Dr. Patten I believe contacted [facility] yesterday but they did not accept her since their services are really needed for definitive treatment of her fistula which would be done in the future. Any infection that she had when she came in on this admission appears to be responding well to his treatment.
--- NOTE | 2017-01-05 08:50 | XRay Report ---
Exam: XR chest 2V Date: 01/05/2017 7:24 AM Indication: Cough pleuritic chest pain Comparison: 01/03/2017 Technical: PA lateral Findings: Platelike atelectatic change present in the right mid chest. Mid inspiratory exam was obtained. The heart, lungs mediastinum and bony structures are otherwise intact. Moderate fecal debris on the lateral examination within the colon. Impression: 1. Minimal platelike atelectasis change in the right mid chest without obvious infiltrate or effusion otherwise noted. PROCEDURE INTERPRETED AT [facility] DEPARTMENT OF RADIOLOGY Final Report Signed by: Dr. Denys Galvez
[2017-01-05] MEDS: NORETHINDRONE AC ETH ESTRADIOL PO SCH (08:55)
[2017-01-05] MEDS: Phentermine Hcl [Adipex-P] 37.5 MG PO SCH (08:55)
[2017-01-05] MEDS: PANTOPRAZOLE 40 MG TABLET PO SCH (08:57)
[2017-01-05] MEDS ORDERED: MAGNESIUM HYDROXIDE SUSP 30 ML UDCUP PO ONE (09:29)
--- NOTE | 2017-01-05 11:28 | Event Note ---
General Surgery Progress Note Chief complaint This patient is a 31-year-old woman admitted with fever and hernial infection following seton placement for fistula and anal that was treated with exploration of groin and pubis area on 01/03/2017 revealing no evidence of necrotizing fasciitis Interval history The patient continues to improve. Yesterday she developed a fever around 1436 and the family became concerned that she was not getting what she needed here in [place] and requested to be transferred to [facility]. I came in and saw the patient and reexamined her at that time and she appeared stable with an isolated fever spike that responded promptly to anti-pyretic medication. We repeated some lab work which showed improvement in her white blood cell count and normalization of her lactic acid level. I accommodated the patient wishes of the patient and her family and called [facility] for transfer. I first discussed the case with the general surgeon pond sawyer and he felt like this was an issue that would be more appropriately dealt with by colorectal specialist. I then waited to speak with the GI surgeon who was on-call for the weekend and he ended up being a bariatric surgeon that was covering both colorectal and foregut minimally invasive surgery for the weekend. He felt like the patient should be better served by remaining here until Thursday when I could speak directly with the colorectal surgeon since she was improving and she did not have any evidence of any need for higher level of care transfer at that time. I discussed this with the family and they were upset but understood that in order to have a transfer and accepting physician would have to be willing to take her in transfer so I explained to them that we would continue doing the best that we can here and treating her infection with IV antibiotics and wound care. There were no further fevers overnight. The white blood cell count is down to 12,000 today and the lactic acid and remainder of the labs appear relatively normalized with the exception of some anemia on her blood counts. Her blood cultures are negative today and her wound cultures have not grown anything yet either. She is again requesting to be transferred to [facility] this morning so I have called Dr. Gt Barnhart who is a colorectal surgeon pond sawyer at [facility]. He was scrubbed into the case when I called him earlier today and I left a message asking him to call me back when he is free to discuss the transfer of this patient. This was disclosed to the patient through the nursing. The patient is also complaining of some pleuritic type chest pain when she coughs is not having any shortness of breath and she does not have a productive cough. Physical exam The patient is afebrile this morning with normal vital signs. She has a baseline lower blood pressure but this is not an acute issue Chest is clear with no evidence of crackles or wheezing Heart is regular and slightly tachycardic The perineal exam reveals stable erythema around the labia and perianal wound with no advancement of the cellulitis. The lower left groin/abdominal incision is clean with no erythema. The wounds are not particularly tender. Labs Reviewed, as above Imaging None new Assessment and plan We will wait to hear back from Dr. Barnhart regarding the possibility of transferring the patient as an inpatient to [facility] per the patient's request. We will continue IV antibiotics and wound care and continue the current treatment today since the patient is improving significantly. If the patient is unable to go to [facility] she will need to stay here for at least another day for her current treatment regimen.
--- NOTE | 2017-01-05 12:43 | Discharge Summary ---
Hospital Course - Hospital Course Hospital Course: This patient was admitted the day following a rectal exam under anesthesia with draining seton placement for transsphincteric fistula with high fever and tachycardia. She had a pelvic CT scan done which showed some air extending beyond the wound of the surgical site and onto the abdominal wall on the left side so she was taken to the operating room for exploration of these tissues and this did not show any evidence of a necrotizing fasciitis. The patient improved significantly with IV antibiotics. Her initial blood cultures were negative. A incision was made over her labia and also in her left groin lower abdominal wall region but the left groin lower abdominal wall incision was closed with skin clips given the lack of any concerning features on the exploration. Labial incision was left open and is being packed with iodoform daily. There is also a wound at the seton drain placement site that is being packed with iodoform. The patient improved following her initial operation and her white blood cell count the next day was going up slightly with little bit of elevated lactic acid. She developed a fever later that day and her family and her requested to be transferred to [facility] to a colorectal specialist at that time. [facility] was contacted on 01/04/2017 and the general surgeon that I talked to request that I speak with the GI surgeon. The GI surgeon was actually forget minimally invasive surgeon that does bariatric surgery and asked that I would call back Thursday morning and talk to the colorectal surgeon to see if they be willing to accept the patient in transfer. We kept the patient in the hospital and continued IV antibiotics and IV fluids. The following day her white blood cell count was down to 12,000 from 18,000 and her lactic acid had normalized. The patient was still requesting transfer to [facility] so I discussed her case with Dr. Rigo Barnhart at [facility] who agreed to accept the patient in transfer. She will be continued on IV antibiotics and we will make a copy of her CT scan of her pelvis that was done on Thursday so that is available for her medical team at [facility]. Diagnosis - Discharge Diagnosis (1) [id number] Status: Acute Discharge Plan - Discharge Data Disposition: Disch/Xfer-[facility] Term Hos Condition at Discharge: Stable Discharge Diet: regular diet Activity: resume usual activities as tolerated - Discharge Medications No Action Montelukast Tab [Singulair Tab] 1 tablet PO QPM Norethindrone AC-Eth Estradiol [Microgestin 21 1-20 Tablet] 1 each PO DAILY Fexofenadine/Pseudoeph 60-120 [Indu D 12 Hour] 1 tablet PO DIRECTED PRN PRN Reason: Sinus Symptoms Phentermine HCl [Adipex-P] 37.5 mg PO DAILY Hydrocodone/Acetaminophen [[place] 7.5-325 Tablet] 1 each PO Q6H PRN #20 tablet PRN Reason: Pain - Follow Up or Referral - Forms/Instructions Exam - Constitutional Vitals: Period Temp Pulse Resp BP Sys/Miramontes Pulse Ox Last 24 Hr 97.2 F-101.6 F 94-128 16-20 99-133/59-75 96-99 General appearance: no acute distress, morbidly obese - Head Head exam: Present: normal inspection, normocephalic - Eye Eye exam: Present: EOMI Pupils: Present: MCKENNA - ENT ENT exam: Present: normal exam - Neck Neck exam: Present: normal inspection - Respiratory Respiratory exam: Present: clear to auscultation bilaterally. Absent: accessory muscle use, chest wall tenderness - Cardiovascular Cardiovascular exam: Present: tachycardia. Absent: systolic murmur - GI/Abdominal GI/Abdominal exam: Present: normal bowel sounds, soft. Absent: tenderness, rebound - Extremities Exam Extremities exam: Present: normal inspection - Back Exam Back exam: Present: normal inspection - Neurological Exam Neurological exam: Present: alert, oriented X3 - Psychiatric Psychiatric exam: Present: normal affect, normal mood - Skin Skin exam: Present: normal color, warm Discharge Results Procedures and tests throughout hospitalization: Pending Orders 01/03/17 15:36 Blood Culture Stat 01/03/17 21:00 Abscess Culture Routine Anaerobic Culture Routine 01/06/17 04:00 Comp Blood Count Auto Diff IN AM Labs on day of discharge: Labs from last 24 hours 01/05/17 01/05/17 01/04/17 04:49 04:49 16:32 WBC 12.3 H RBC 5.33 Hgb 9.9 L Hct 32.3 L MCV 60.6 L MCH 19 L MCHC 30.7 L RDW 16.7 Plt Count 210 D MPV 10.6 Neut % (Auto) 82.4 H Lymph % (Auto) 10.0 L [place] % (Auto) 5.7 Eos % (Auto) 1.0 Baso % (Auto) 0.2 Neut # (Auto) 10.1 H Lymph # (Auto) 1.2 L [place] # (Auto) 0.7 Eos # (Auto) 0.1 Baso # (Auto) 0.0 Immature Gran % 0.7 Nucleated RBC % 0.0 Immature Gran # 0.08 Nucleated RBCs # 0.00 Sodium 140 137 Potassium 4.1 4.2 Chloride 105 103 Carbon Dioxide 28 27 Anion Gap 11.1 11.2 BUN 6 L 6 L Creatinine 0.60 0.80 GFR Calculation 149 120 BUN/Creatinine Ratio 10.00 7.00 Glucose 94 84 Calculated Osmolality 276.4 269.8 L Lactic Acid 0.7 0.7 Calcium 7.8 L 8.0 L Magnesium 2.1 1.8 01/04/17 16:31 WBC 17.2 H RBC 5.88 H Hgb 11.0 L Hct 36.0 MCV 61.2 L MCH 19 L MCHC 30.6 L RDW 17.5 H Plt Count 272 MPV 10.5 Neut % (Auto) 82.8 H Lymph % (Auto) 12.0 L [place] % (Auto) 4.2 Eos % (Auto) 0.3 Baso % (Auto) 0.2 Neut # (Auto) 14.2 H Lymph # (Auto) 2.1 [place] # (Auto) 0.7 Eos # (Auto) 0.1 Baso # (Auto) 0.0 Immature Gran % 0.5 Nucleated RBC % 0.0 Immature Gran # 0.08 Nucleated RBCs # 0.00 Sodium Potassium Chloride Carbon Dioxide Anion Gap BUN Creatinine GFR Calculation BUN/Creatinine Ratio Glucose Calculated Osmolality Lactic Acid Calcium Magnesium Preliminary micro results at discharge 01/03/17 15:36 Blood Culture - Preliminary Blood No growth at 1 day 01/03/17 15:36 Blood Culture - Preliminary Blood No growth at 1 day DS: Provider Date of admission: 01/03/17 12:05 Primary care physician: Rubina Mayer Attending physician on admission: Chris Patten MD Discharging clinician: Chris Patten MD Expected date of discharge: 01/05/17
[2017-01-05 16:19] VITALS: BP 104/64
--- NOTE | 2017-01-06 13:19 | Physician Query Form ---
CLICK EDIT DOCUMENT TO SELECT QUERY ANSWER --> OK --> SIGN Maryam Kent RN, CCDS Certified Clinical Java Web Application Developer W) [phone] (f) [phone] [email or web address] PROVIDERS: Make your selection(s) from the choices in EACH section by typing an "x" and enter comments in the comment section. Please use your independent medical judgment in providing your response. This request does not imply that any particular answer is desired or expected. CLINICAL INDICATORS: (Providers should not edit this section) "Admitted with fever and hernial infection following seton placement for fistula ", WBC 14.3#, lactic Acid 2.5#, Temps 101.5 ---102.0, Pulse of 109# and "postoperatively I think that we will still pursue aggressive antibiotics". Please clarify which, if any, of the following is the etiology of the above symptoms and treatment rendered: ( ) Sepsis due to a localized infection, please specify infection: ( ) Severe Sepsis (sepsis with acute organ failure) - Please specify type acute organ failure: ( ) Septic Shock (severe sepsis with hypotension) ( ) SIRS of noninfectious origin ( ) Sepsis due to a device, implant or graft, please specify: ( ) Localized infection only, without systemic illness, please specify infection : ( ) Bacteremia (abnormal lab finding only, does not indicate systemic illness) ( ) Other condition, please specify: ( ) Clinically unable to determine Criteria for Sepsis (SIRS due to an infection) should be based on 2 or more of the following being present: Temperature > 101F or < 96.8F WBC > 12,000 or < 4,000, or > 10% bands Tachycardia HR > 90 beats/minute Tachypnea RR > 20 breaths/minute or PaCO2 > 32mmHg Lactate level > 2.0 mmol/L (>4 is equivalent to severe sepsis) Altered Mental Status Mottling of skin or prolonged capillary refill Non-diabetic hyperglycemia (blood sugar >120 mg/dl) Other evidence of acute organ failure associated with sepsis ( severe sepsis) COMMENTS: PLEASE ALSO DOCUMENT RESPONSE IN PROGRESS NOTES AND/OR DISCHARGE SUMMARY Use of terms such as suspected, likely, or probable (associated with a specific diagnosis that is being evaluated, monitored, or treated as if it exists) are acceptable and can be restated in the discharge summary if not ruled out. MTDD
--- NOTE | 2017-01-06 13:22 | Physician Query Form ---
CLICK EDIT DOCUMENT TO SELECT QUERY ANSWER --> OK --> SIGN Maryam Kent RN, CCDS Certified Clinical [employer] Upper W) [phone] (f) [phone] [email or web address] PROVIDERS: Make your selection(s) from the choices in EACH section by typing an "x" and enter comments in the comment section. Please use your independent medical judgment in providing your response. This request does not imply that any particular answer is desired or expected. CLINICAL INDICATORS: (Providers should not edit this section) "Admitted with fever and hernial infection following seton placement for fistula ", WBC 14.3#, lactic Acid 2.5#, Temps 101.5 ---102.0, Pulse of 109# and "postoperatively I think that we will still pursue aggressive antibiotics". Please clarify which, if any, of the following is the etiology of the above symptoms and treatment rendered: (x) Sepsis due to a localized infection, please specify infection: ( ) Severe Sepsis (sepsis with acute organ failure) - Please specify type acute organ failure: ( ) Septic Shock (severe sepsis with hypotension) ( ) SIRS of noninfectious origin ( ) Sepsis due to a device, implant or graft, please specify: ( ) Localized infection only, without systemic illness, please specify infection : ( ) Bacteremia (abnormal lab finding only, does not indicate systemic illness) ( ) Other condition, please specify: ( ) Clinically unable to determine Criteria for Sepsis (SIRS due to an infection) should be based on 2 or more of the following being present: Temperature > 101F or < 96.8F WBC > 12,000 or < 4,000, or > 10% bands Tachycardia HR > 90 beats/minute Tachypnea RR > 20 breaths/minute or PaCO2 > 32mmHg Lactate level > 2.0 mmol/L (>4 is equivalent to severe sepsis) Altered Mental Status Mottling of skin or prolonged capillary refill Non-diabetic hyperglycemia (blood sugar >120 mg/dl) Other evidence of acute organ failure associated with sepsis ( severe sepsis) COMMENTS: PLEASE ALSO DOCUMENT RESPONSE IN PROGRESS NOTES AND/OR DISCHARGE SUMMARY Use of terms such as suspected, likely, or probable (associated with a specific diagnosis that is being evaluated, monitored, or treated as if it exists) are acceptable and can be restated in the discharge summary if not ruled out. MTDD
== END 2017-01-05 16:05 | disposition hospice, home (50) | DRG 854 ==
LOC: N.ADMINP 12:05
PROVIDERS: ADMIT Surgery; ATTEND Surgery

== ENCOUNTER 2017-01-18 19:12 | Observation (INO) ==
[2017-01-18] MEDS ORDERED: PROMETHAZINE 25 MG/1 ML VIAL IM PRN (20:38)
[2017-01-18] MEDS ORDERED: ACETAMINOPHEN 325 MG TABLET PO PRN (20:38)
[2017-01-18] MEDS ORDERED: ONDANSETRON 4 MG/2 ML VIAL IV PRN (20:38)
[2017-01-18] MEDS ORDERED: LACTATED RINGERS 1,000 ML IV SCH (20:38)
[2017-01-18] MEDS: ERTAPENEM 1,000 MG in SODIUM CHLORIDE 0.9% 100 ML IV SCH (21:49)
[2017-01-18 22:13] LABS: Basophils # 0.1 10*3/uL (0.0-0.2); Basophils % 0.5 % (0.0-0.8); Eosinophils # 0.2 10*3/uL (0.0-0.87); Eosinophils % 1.4 % (0.00-10.9); Hematocrit 34.6 VOL% (35.7-47.0); Hemoglobin 10.8 GM/DL (12.0-16.0); Immature Granulocytes % 0.4 %; Immature Granulocytes Absolute 0.06 #; Lymphocytes # 2.7 10*3/uL (1.4-4.0); Lymphocytes % 20.1 % (21.3-54.2); Mean Corpuscular HGB Conc 31.2 GM/DL (32-36); Mean Corpuscular Hemoglobin 19 PG (27-34); Mean Corpuscular Volume 60.3 FL (87-102); Mean Platelet Volume 10.7 FL (9.6-12.0); Monocytes # 0.6 10*3/uL (0.11-0.8); Monocytes % 4.7 % (1.7-12.7); Neutrophils # 9.9 10*3/uL (1.4-7.4); Neutrophils % 72.9 % (38.7-73.9); Platelet Count 343 T/CUMM (130-400); Red Blood Count 5.74 MC/CUMM (3.8-5.5); Red Cell Distribution Width 18.1 % (9.3-17.3); White Blood Count 13.6 T/CUMM (4-12)
[2017-01-18 22:39] LABS: Calcium 8.1 MG/DL (8.5-10.1); Osmolality,Calculated 282.1 MOS/KG (273-304); Potassium 4.2 MMOL/L (3.5-5.1)
--- NOTE | 2017-01-19 08:45 | General Surg History&Physical ---
Assessment and Plan (1) Buttock wound Status: Acute Assessment and plan: We will start ertapenem and set up for home health for antibiotic infusion. Current Visit: No History of Present Illness Chief complaint: Anal pain History of present illness: Ms. Phan is a 31 year old female well known to me has a history of perirectal abscesses been treated with seton for a fistula and the wound is being packed but culture recently grew Citrobacter that is not sensitive to p.o. antibiotics. She is admitted for IV antibiotics and discharged home with IV antibiotics. White blood cell count 13,000 Home Medications Medication Instructions Recorded Confirmed Type Montelukast Tab [Singulair Tab] 1 tablet PO QPM 05/21/15 01/18/17 History Norethindrone AC-Eth Estradiol 1 each PO DAILY 01/01/17 01/18/17 History [Microgestin 21 1-20 Tablet] Hydrocodone/Acetaminophen [[place] 1 each PO Q6H PRN #20 tablet 01/02/17 01/18/17 Rx 7.5-325 Tablet] Docusate Sodium [Colace] 100 mg PO DAILY 01/16/17 01/18/17 History Moxifloxacin HCl [Moxifloxacin Tab] 400 mg PO DAILY 01/16/17 01/18/17 History metroNIDAZOLE TAB [Flagyl Cap/Tab] 500 mg PO TID 01/16/17 01/18/17 History Allergies Allergy/AdvReac Type Severity Reaction Status Date / Time Cefaclor [From Ceclor] Allergy Severe HIVES Verified 01/02/17 08:21 cefixime [From Suprax] Allergy Severe HIVES Verified 01/02/17 08:21 Cefprozil [From Cefzil] Allergy Severe HIVES Verified 01/02/17 08:21 Telithromycin [From Ketek] AdvReac Intermediate Blurry Verified 01/02/17 08:21 Vision Medical,Surgical,& Family Hx - Medical History Cardio: No history of: Aneurysm, Cardiac Dysrhythmia, Cerebrovascular Disease, Congenital Heart Disease, CHF, CAD, Hypertension, NC, Pacemaker, PVD, Valvular Heart Disease, Cardiovascular Problems Psychological: No history of: Anxiety Disorders, ADHD, Behavior Problems, Bipolar Disorder, Depression, Previous Suicide Attempt, Psychiatric/Substance Abuse Tx, Schizophrenia, Violent Behavior, Psychiatric Problems Neurology: No history of: Brain Aneurysm, Cerebral Hemorrhage, Cerebrovascular Accident , Cerebral Palsy, Dementia, Migraine, Multiple Sclerosis, Parkinson's Disease, Peripheral Neuropathy, Seizures, TIA, Vertigo, Neurologocal Cancer HEENT: No history of: HEENT Problems Endocrine: No history of: Dyslipidemia, Endocrine Problems Respiratory: History of: Respiratory Problems (COLD WITHIN THE LAST 2 WEEKS.) No history of: Asthma, Bronchitis, COPD, Intubation, Obstructive Sleep Apnea , Pulmonary Embolism, Pulmonary Hypertension, Pneumonia, Lung Cancer Gastrointestinal: History of: GERD No history of: Bowel Obstruction, Clostridium Difficile, Crohn's Disease, Diverticulitis/ Diverticulosis, Esophageal Varices, Gastrointestinal Bleed, Hemorrhoids, Hematochezia, Hepatitis, Liver Problems, Pancreatitis, Polyps, Ulcerative Colitis, Gastrointestinal Cancer, GI Problems Musculoskeletal: No history of: Amputation, Musculoskeletal Problems Hematology: History of: Blood Disorders (Thalasemia minor) No history of: Anemia, Blood Transfusion Reaction, Bleeding Problems, Clotting Problems, Sickle Cell Disease, Hematologic Cancer Reproductive: History of: Complication (miscarriage 10) No history of: Ectopic Comment Only: Reproductive Problems (Currently taking control) Other: History of: Anesthesia Reactions (Mother had reaction in surgery elevated temp), Miscellaneous Medical Problems (I&D ASCESS 10/21/16 AND I&D WITH DRAIN TUBE PLACEMENT 10/30/2016.) No history of: Cancer - Surgical History Cardiac Surgeries: Patient Denies: Femoral-Popliteal Bypass Graft, Cardiac Catheterization, Cardiac Surgery, Carotid Endarterectomy, Internal Defibrillator, Vascular Access Devices Thoracic Surgeries: Patient denies;: Organ Transplant, Lobectomy Neurologic Surgeries: Patient denies: Brain Aneurysm, Cerebral Hemorrhage, Neurologic Surgery HEENT Surgeries: Surgical HX of: Tonsilectomy & Adenoidectomy Patient denies: Carotid Endarterectomy, Eye Surgery, Thyroid Surgery Abdominal Surgeries: Patient denies: Abdominal Surgery, Appendectomy, Cholecystectomy, Colonoscopy , Gastric Bypass Surgery, EGD, Hernia Repair, Splenectomy Reproductive Surgeries: Surgical HX of;: Breast Surgery (2004), Section (Jun 2015), Dilation and Curettage (2013), Gynecologic Surgery Patient denies;: Genitourinary Surgery, Hysterectomy, Tubal Ligation - Family History Family History: Reports;: Family Anesthesia Reaction (mother), Family Cancer ( PGM and PGF), Family Diabetes (mother), Family Heart Disease (NC PGM), Family Hypertension (PGM and mother), Family Stroke Denies;: Family Psychiatric Problems - Social History Smoking Status: Never smoker Frequency of Alcohol Use: None Type of Drug Use: None Exam - Constitutional Vitals: Period Temp Pulse Resp BP Sys/Miramontes Pulse Ox Last 24 Hr 97.4 F-98.4 F 73-103 16-20 97-127/55-70 96-99 General appearance: no acute distress, morbidly obese - Head Head exam: Present: normal inspection, normocephalic - Eye Eye exam: Present: EOMI Pupils: Present: MCKENNA - ENT ENT exam: Present: normal exam Mouth exam: Present: normal external inspection, normal voice - Neck Neck exam: Present: normal inspection, trachea midline - Respiratory Respiratory exam: Present: clear to auscultation bilaterally. Absent: accessory muscle use, chest wall tenderness - Cardiovascular Cardiovascular exam: Present: RRR. Absent: systolic murmur, tachycardia - GI/Abdominal GI/Abdominal exam: Present: soft. Absent: tenderness, rebound - Anus/Rectum Anus/Rectum: other (There is a well drained cavity in the perirectal space with a seton in place. The labial area is clean with no infection.) - Extremities Exam Extremities exam: Present: normal inspection, normal capillary refill - Back Exam Back exam: Present: normal inspection - Neurological Exam Neurological exam: Present: alert, oriented X3 Speech: Present: normal - Skin Skin exam: Present: normal color, warm - Constitutional Constitutional: Present: as per HPI - EENT Nose, mouth and throat: Present: as per HPI - Cardiovascular Cardiovascular: Present: as per HPI - Respiratory Respiratory: Present: as per HPI - Gastrointestinal Gastrointestinal: Present: as per HPI - Genitourinary Genitourinary: Present: as per HPI - Musculoskeletal Musculoskeletal: Present: as per HPI - Neurological Neurological: Present: as per HPI - Endocrine Endocrine: Present: as per HPI Hematologic/Lymphatic: Present: as per HPI Results - Labs CBC & BMP: 01/18/17 21:57 01/18/17 21:57
[2017-01-19] MEDS ORDERED: PANTOPRAZOLE 40 MG TABLET PO SCH (09:00)
[2017-01-19] MEDS ORDERED: NORETHINDRONE AC ETH ESTRADIOL PO SCH (09:00)
--- NOTE | 2017-01-19 11:07 | Discharge Summary ---
Hospital Course - Hospital Course Hospital Course: 31-year-old female well-known to Dr. Patten with history of perirectal abscesses has been treated with seton for fistula and the wound is being packed but the culture recently grew Citrobacter that is not sensitive to p.o. antibiotics. She was admitted for PICC line insertion and set up for IV infusion at the infusion center. She will receive Invanz 1 g every 24 hours 14 days. Patient has a follow-up appointment on 01/30/2017 with her surgeon at [facility]. No follow-up needed with Dr. Patten. Patient's case was discussed with Irma Pro the block and case maker, nursing staff, patient and family. Care coordination, chart review, and completed discharge paperwork took approximately 40 minutes. - Time spent with patient Time with patient DS: Greater than 30 minutes Diagnosis - Discharge Diagnosis (1) Perirectal abscess Status: Acute Discharge Plan - Discharge Data Disposition: Disch To Home/Self Care Condition at Discharge: Stable Discharge Diet: advance to your usual diet Activity: resume usual activities as tolerated Hygiene: may shower Driving: other (No driving if taking pain medications) - Discharge Medications New Ertapenem [INVanz] 1,000 mg IV Q24H #14 vial Continue Montelukast Tab [Singulair Tab] 1 tablet PO QPM Norethindrone AC-Eth Estradiol [Microgestin 21 1-20 Tablet] 1 each PO DAILY Docusate Sodium [Colace] 100 mg PO DAILY Hydrocodone/Acetaminophen [[place] 7.5-325 Tablet] 1 each PO Q6H PRN #20 tablet PRN Reason: Pain Discontinued metroNIDAZOLE TAB [Flagyl Cap/Tab] 500 mg PO TID Moxifloxacin HCl [Moxifloxacin Tab] 400 mg PO DAILY - Follow Up or Referral Follow Up: [facility], surgeon [Other] (keep scheduled appt [facility]) - Forms/Instructions Exam - Constitutional Vitals: Period Temp Pulse Resp BP Sys/Miramontes Pulse Ox Last 24 Hr 97.4 F-98.4 F 73-103 16-20 97-127/55-70 96-99 Discharge Results Procedures and tests throughout hospitalization: Pending Orders 01/19/17 IR PICC line insertion Routine US guide vascular access Routine Labs on day of discharge: Labs from last 24 hours 07/09/17 07/09/17 21:57 21:57 WBC 13.6 H RBC 5.74 H Hgb 10.8 L Hct 34.6 L MCV 60.3 L MCH 19 L MCHC 31.2 L RDW 18.1 H Plt Count 343 MPV 10.7 Neut % (Auto) 72.9 Lymph % (Auto) 20.1 L [place] % (Auto) 4.7 Eos % (Auto) 1.4 Baso % (Auto) 0.5 Neut # (Auto) 9.9 H Lymph # (Auto) 2.7 [place] # (Auto) 0.6 Eos # (Auto) 0.2 Baso # (Auto) 0.1 Immature Gran % 0.4 Nucleated RBC % 0.0 Immature Gran # 0.06 Nucleated RBCs # 0.00 Sodium 142 Potassium 4.2 Chloride 107 Carbon Dioxide 31 Anion Gap 8.2 BUN 11 Creatinine 0.80 GFR Calculation 120 BUN/Creatinine Ratio 13.00 Glucose 109 H Calculated Osmolality 282.1 Calcium 8.1 L DS: Provider Date of admission: 01/18/17 19:23 Primary care physician: Rubina Mayer Attending physician on admission: Chris Patten MD Discharging clinician: SAIRA Villalta Expected date of discharge: 01/19/17
[2017-01-19 11:40] VITALS: BP 116/68
[2017-01-19] MEDS ORDERED: ENOXAPARIN 40 MG/0.4 ML SYRINGE SUBCUT SCH (13:00)
--- NOTE | 2017-01-19 13:24 | Post Interventional Procedure ---
Pre-op diagnosis: Perirectal abscess Post-op diagnosis: same Procedure: PICC RUE Flouroscopy: 0.1 min Radiologist: Atif Ordonez Anesthesia: local Specimens: none sent Estimated blood loss: none Complications: none Condition: stable Assessment and Plan - Time spent with patient Time spent with patient: Less than 30 minutes
[2017-01-19] MEDS: ERTAPENEM 1,000 MG in SODIUM CHLORIDE 0.9% 100 ML IV SCH (14:02)
--- NOTE | 2017-01-19 14:19 | Interventional Radiology Rpt ---
IR PICC line insertion, US guide vascular access Indication: Perirectal abscess. Long-term IV antibiotics necessary. PICC LINE Description: A formal timeout was performed. Maximum sterile barrier technique was used. Sonographic evaluation of the right upper extremity demonstrates patent and compressible basilar vein. The upper arm was prepped and draped in sterile fashion. 3 cc 1% lidocaine was administered subcutaneously. Under sonographic guidance, a micropuncture needle was advanced into the vein. A captured sonographic image documents the position of the needle. Needle was exchanged over a wire for a peel-away sheath. A dual lumen power PICC, cut to 38 cm, was advanced over the wire until the tip was at the RA-SVC junction. The position of the catheter was confirmed with fluoroscopic guidance and an image stored in PACS. The wire and sheath were removed. Both ports of the PICC were aspirated and flushed with heparinized saline. The device was secured with a StatLock. Fluoroscopy: 0.1 minute. Impression: PICC line ready for immediate use. Routine catheter care. PROCEDURE INTERPRETED AT [facility] [place] DEPARTMENT OF RADIOLOGY Final Report Signed by: Atif Ordonez M.D.
[2017-01-19] MEDS ORDERED: MONTELUKAST 10 MG TABLET PO SCH (21:00)
== END 2017-01-19 14:50 | disposition home or self-care (01) ==
LOC: INTOOBSV 19:23 → N.3E 20:13
PROVIDERS: ADMIT Surgery; ATTEND Surgery